=== PATIENT | female | born 1940 | race Caucasian/White ===

== ENCOUNTER 2016-11-28 20:06 | Inpatient (IN) | payer MEDICARE, OTHER ==
[~2016-11-28] VITALS: Ht 152.4 cm; Wt 67.1 kg
[~2016-11-28 20:06] MED LIST: SITA1TAB3
--- NOTE | 2016-11-28 21:09 | ERD ---
ER Documentation Chief Complaint Date/Time DATE: 11/28/16 TIME: 21:05 Chief Complaint left facial swelling due to tooth infection x 5 days (KARIN ANN NP) HPI This is a 76 year old female, with past medical history of diabetes mellitus type 2, presenting to ER with left sided facial swelling and pain. She states she was seen by her dentist 4 days ago and was told she has a tooth infection. Patient was prescribed Omnicef and has been taking it as directed. Patient now has moderate swelling and pain to left side of her face. Patient also states the last time her labs were checked her blood glucose was 420. Patient takes metformin for her diabetes. Patient does not check her blood glucose regularly. No fevers or chills. No nausea or vomiting. No neck pain or neck stiffness. (KARIN ANN NP) ROS All systems reviewed and are negative except as per history of present illness. (KARIN ANN NP) Medications Home Meds Reported Medications Sitagliptin Phos-Metformin Hcl (Janumet) 1 Tab Tablet 02/11/10 Allergies Allergies: Coded Allergies: No Known Allergy (Verified Allergy, Unknown, 06/05/08) PMhx/Soc Medical and Surgical Hx: pt denies Surgical Hx History of Surgery: No Anesthesia Reaction: No Hx Neurological Disorder: No Hx Respiratory Disorders: No Hx Cardiac Disorders: No Hx Psychiatric Problems: No Hx Miscellaneous Medical Probl: Yes (NIDDM) Hx Alcohol Use: No Hx Substance Use: No Hx Tobacco Use: No Smoking Status: Never smoker (KARIN ANN NP) Physical Exam Vitals Vital Signs Date Time Temp Pulse Resp B/P Pulse Ox O2 Delivery O2 Flow Rate FiO2 11/28/16 20:08 99.5 114 20 116/63 97 (ESTELA SRINIVASAN DO) Physical Exam Const: No acute distress, alert Head: Atraumatic , left sided facial swelling and erythema. Eyes: Normal Conjunctiva ENT: Normal External Ears, Nose and Mouth. Neck: Full range of motion..~ No meningismus. Resp: Clear to auscultation bilaterally Cardio: Regular rate and rhythm, no murmurs Abd: Soft, non tender, non distended. Normal bowel sounds Skin: No petechiae or rashes Back: No midline or flank tenderness Ext: No cyanosis, or edema Neur: Awake and alert Psych: Normal Mood and Affect (KARIN ANN. KNOWLEDGE ARCHITECT) Result Diagram: 11/28/16210411/28/162107 Results 24 hrs Laboratory Tests Test 11/28/16 21:05 11/28/16 21:08 11/28/16 21:50 11/28/16 22:23 White Blood Count 20.810^3/ul Red Blood Count 3.7910^6/ul Hemoglobin 10.8g/dl Hematocrit 32.3% Mean Corpuscular Volume 85.2fl Mean Corpuscular Hemoglobin 28.5pg Mean Corpuscular Hemoglobin Concent 33.4g/dl Red Cell Distribution Width 12.8% Platelet Count 77652^3/UL Mean Platelet Volume 11.3fl Neutrophils % 81.8% Lymphocytes % 8.8% Monocytes % 8.4% Eosinophils % 0.3% Basophils % 0.2% Nucleated Red Blood Cells % 0.0/100WBC Neutrophils # 17.010^3/ul Lymphocytes # 1.810^3/ul Monocytes # 1.710^3/ul Eosinophils # 0.110^3/ul Basophils # 0.110^3/ul Nucleated Red Blood Cells # 0.010^3/ul Prothrombin Time 13.6Sec Prothrombin Time Ratio 1.1 INR International Normalized Ratio 1.04 Activated Partial Thromboplast Time 31.5Sec Sodium Level 139mmol/L Potassium Level 3.9mmol/L Chloride Level 103mmol/L Carbon Dioxide Level 25mmol/L Anion Gap 15 Blood Urea Nitrogen 28mg/dl Creatinine 1.00mg/dl Glucose Level 293mg/dl Lactic Acid Level 1.2mmol/L Calcium Level 9.1mg/dl Total Bilirubin 0.2mg/dl Direct Bilirubin 0.00mg/dl Indirect Bilirubin 0.2mg/dl Aspartate Amino Transf (AST/SGOT) 14IU/L Alanine Aminotransferase (ALT/SGPT) 25IU/L Alkaline Phosphatase 176IU/L Total Protein 7.4g/dl Albumin 3.6g/dl Globulin 3.80g/dl Albumin/Globulin Ratio 0.94 Troponin I < 0.012ng/ml Urine Color YELLOW Urine Clarity SLIGHTLY CLOUDY Urine pH 5.0 Urine Specific [place] 1.022 Urine Ketones 1+mg/dL Urine Nitrite NEGATIVEmg/dL Urine Bilirubin NEGATIVEmg/dL Urine Urobilinogen 1+mg/dL Urine Leukocyte Esterase 2+Karan/ul Urine Microscopic RBC 1/HPF Urine Microscopic WBC 14/HPF Urine Squamous Epithelial Cells FEW/HPF Urine Transitional Epithelial Cells FEW/HPF Urine Hyaline Casts FEW/HPF Urine Hemoglobin NEGATIVEmg/dL Urine Glucose 3+mg/dL Urine Total Protein 1+mg/dl Current Medications Medications (Trade) Dose Ordered Sig/Dayron Route PRN Reason Start Time Stop Time Status Last Admin Dose Admin Sodium Chloride 2140 ml 2,140 ml BOLUS OVER 2 HOURS STAT IV* 11/28/16 21:35 11/28/16 21:37 DC 11/28/16 21:44 Piperacillin Sod/ Tazobactam Sod (Zosyn 3.375gm/ 100 ml (Pmx)) 100 ml @ 200 mls/hr ONCE ONCE IVPB 11/28/16 22:30 11/28/16 22:59 DC 11/28/16 22:24 (ESTELA SRINIVASAN DO) Procedures/MDM DM: This is a 76-year-old female presenting to the emergency department for left -sided facial swelling, redness and pain starting yesterday. Patient went to her dentist 4 days ago and was prescribed Omnicef for possible tooth infection per patient. Patient is afebrile upon arrival to ED and heart rate [address] Srinivasan regarding this patient and we agree that lab work should be done to rule out sepsis. Labs show elevated WBC 20 with neutrophilia. CMP shows 293, AST 14, ALT 25, alkaline phosphatase 176. Troponin less than 0.012. Lactic acid 1.2. Blood cultures drawn. UA shows 2+ leukocyte esterase, and 14 WBCs. Discussed findings with Dr. Srinivasan. We agree that patient should be admitted for further evaluation. Patient started on Zosyn IV. (KARIN ANN NP) UTI with sepsis and elderly female. Possibly also contributing is dental infection. Patient was initially given Zosyn. She was given 30 cc/kg of IV fluid as well. Significant leukocytosis with a white count of 20. Vital signs were stabilized in the emergency room. Urine cultures obtained and will be followed. Patient will need to eventually have to see a dentist for definitive treatment of her dental infection but sepsis can be treated here. Diabetic hyperglycemia likely elevated secondary to infection. She was given saline for this and sugar will be rechecked in insulin may be started. X-ray interpretation: I see no acute process, no infiltrate, no pulmonary edema , no pneumothorax, no fractures Vertigo care time greater than 35 minutes: This includes treatment of sepsis with unstable vital signs, careful fluid administration, antibiotic administration, all visits patient's bedside to reassess status, discussion with patient and admitting doctor, review of chart. This does not include billable procedures. (ESTELA SRINIVASAN DO) Departure Diagnosis: Primary Impression: Sepsis secondary to UTI Additional Impressions: Dental infection Hyperglycemia due to type 2 diabetes mellitus Condition: KARIN Tatum NP Nov 28, 2016 21:09 ESTELA SRINIVASAN DO Nov 29, 2016 00:10
[2016-11-28 21:18] LABS: ABNORMAL IP MESSAGE 1; BASOPHIL # 0.1 10^3/ul (0.0-0.1); BASOPHILS % 0.2 % (0.0-2.0); EOSINOPHILS # 0.1 10^3/ul (0.0-0.5); EOSINOPHILS % 0.3 % (0.0-7.0); HEMATOCRIT 32.3 % (37.0-47.0); HEMOGLOBIN 10.8 g/dl (12.0-16.0); LYMPHOCYTES # 1.8 10^3/ul (0.8-2.9); LYMPHOCYTES % 8.8 % (15.0-51.0); MEAN CORPUSCULAR HEMOGLOBIN 28.5 pg (29.0-33.0); MEAN CORPUSCULAR HGB CONC 33.4 g/dl (32.0-37.0); MEAN CORPUSCULAR VOLUME 85.2 fl (82.0-101.0); MEAN PLATELET VOLUME 11.3 fl (7.4-10.4); MONOCYTE # 1.7 10^3/ul (0.3-0.9); MONOCYTES % 8.4 % (0.0-11.0); NEUTROPHILS % 81.8 % (39.0-77.0); PLATELET COUNT 291 10^3/UL (140-415); RED BLOOD COUNT 3.79 10^6/ul (4.20-5.40); RED CELL DISTRIBUTION WIDTH 12.8 % (11.5-14.5); WHITE BLOOD COUNT 20.8 10^3/ul (4.8-10.8)
[2016-11-28 21:20] LABS: POSITIVE DIFF @See below
[2016-11-28] MEDS ORDERED: SODIUM CHLORIDE 0.9% 1L BAG IV* STA (21:35)
[2016-11-28 22:08] LABS: INR 1.04; PROTIME 13.6 Sec (12.2-14.2); PT RATIO 1.1
[2016-11-28 22:09] LABS: PARTIAL THROMBOPLASTIN TIME 31.5 Sec (25.0-35.0)
[2016-11-28 22:16] LABS: ALBUMIN 3.6 g/dl (3.3-4.9); ALBUMIN/GLOBULIN RATIO 0.94; BILIRUBIN,INDIRECT 0.2 mg/dl (0-1.1); BILIRUBIN,TOTAL 0.2 mg/dl (0.2-1.3); CALCIUM 9.1 mg/dl (8.4-10.2); POTASSIUM 3.9 mmol/L (3.5-5.1); TOTAL PROTEIN 7.4 g/dl (6.1-8.1)
[2016-11-28] MEDS ORDERED: PIPER-TAZO 3.375 GM IV (PMX) 100 ML IVPB ONE (22:30)
[2016-11-28 23:18] LABS: ADD UMIC YES; UR ASCORBIC ACID 40 mg/dL (NEGATIVE); UR BILIRUBIN (Dip) NEGATIVE (NEGATIVE); UR BLOOD (Dip) NEGATIVE (NEGATIVE); UR CLARITY SLIGHTLY CLOUDY (CLEAR); UR COLOR YELLOW (YELLOW); UR GLUCOSE (Dip) 3+ mg/dL (NEGATIVE); UR KETONES (Dip) 1+ mg/dL (NEGATIVE); UR LEUKOCYTE ESTERASE (Dip) 2+ Leu/ul (NEGATIVE); UR NITRITE (Dip) NEGATIVE (NEGATIVE); UR RBC 1 /HPF (0-5); UR SPECIFIC GRAVITY (Dip) 1.022 (1.003-1.030); UR SQUAMOUS EPITHELIAL CELL FEW /HPF (FEW); UR TOTAL PROTEIN (Dip) 1+ mg/dl (NEGATIVE); UR TRANSITIONAL EPI CELL FEW /HPF (NONE SEEN); UR UROBILINOGEN (Dip) 1+ mg/dL (NEGATIVE)
--- NOTE | 2016-11-28 23:45 | RADRPT ---
PROCEDURE: XR Chest. CLINICAL INDICATION: Possible sepsis. TECHNIQUE: Single frontal view of the chest. COMPARISON: None. FINDINGS: Cardiomegaly. Mild atelectasis at the left lung base. No signs of pleural fluid or pneumothorax are seen. Dextroscoliosis in the upper thoracic spine. Otherwise, the osseous structures and soft tissue s are unremarkable. IMPRESSION: No evidence for active cardiopulmonary disease. RPTAT: UU Physician Leidy Date Time Electronically viewed and signed by Dariana Kearns Physician on 11/28/2016 23:44 RS/
[2016-11-29] MEDS ORDERED: morphine 4 MG/ML VIAL IV STA (01:04)
[2016-11-29] MEDS ORDERED: SOD CHLORIDE 0.9% 1,000 ML IV SCH (01:13)
--- NOTE | 2016-11-29 01:16 | EN ---
Date/Time of Note Date/Time of Note DATE: 11/29/16 TIME: 01:14 ER Progress Note I was notified by an fast track nurse that there was a patient in the back who is supposed to have been admitted. This patient does have facial cellulitis. I reevaluated this patient in this patient did have swelling of the face with no compromise of the airway. Her lab work does show leukocytosis, she was febrile. She does meet sepsis criteria. The patient was given greater than 30 cc/kg of IV normal saline. I did start the patient on vancomycin, the patient received Zosyn. This patient will be placed in for admission at this time for facial cellulitis with sepsis. The patient will be admitted to the [facility] floor under the care of her panel physician Dr. méndez Critical Care: Excluding all billable procedures Time: 44 minutes Treatments/Evaluations: Close monitoring and treatment of unstable vital signs, cardiorespiratory, and neurologic status, while maintaining tight balance of fluid, respiratory, and cardiac interventions. OTONIEL SYKES DO Nov 29, 2016 01:16
[2016-11-29] MEDS ORDERED: IODIXANOL LOCM 100 ML BTL ONE (01:20)
[2016-11-29] MEDS ORDERED: SOD CHLORIDE 0.9% 100 ML ONE (01:20)
[2016-11-29] MEDS ORDERED: DEXAMETHASONE 10 MG/ML 1 ML INJ IV ONE (01:30)
[2016-11-29] MEDS ORDERED: ONDANSETRON 4 MG INJ IV PRN (01:30)
[2016-11-29] MEDS ORDERED: ACETAMINOPHEN 325 MG TAB PO PRN (01:30)
[2016-11-29] MEDS ORDERED: VANCOMYCIN 1 GM (PMX) 250 ML IVPB SCH (01:30)
[2016-11-29 03:18] VITALS: BP 100/56; PULSE 98; RESP 18
[2016-11-29 03:19] VITALS: Ht 152.4 cm; Wt 67.1 kg
--- NOTE | 2016-11-29 03:41 | RADRPT ---
PROCEDURE: CT maxillofacial with contrast. CLINICAL INDICATION: Left facial swelling. TECHNIQUE: CT of the maxillofacial was performed on a multi-detector high-resolution CT scanner. Contiguous axial images were obtained after the administration of 90 cc Visipaque 320 intravenous co ntrast. Coronal and sagittal reformatted images were obtained. Images were reviewed on a PACS works tation. One or more of the following dose reduction techniques were used: - Automated exposure control. - Adjustment of the mA and/or kV according to patient size. - Use of iterative reconstruction technique. Exam CTD/vol = 53.57 mGy. Total exam DLP = 900.78 mGy-cm. COMPARISON: None. FINDINGS: There is enlargement of the left masseter muscle with poorly defined areas of low attenuation. There is left facial soft tissue swelling with subcutaneous stranding. The left parotid gland is enlarged and mildly edematous. There are small calcifications within bilateral palatine tonsils compatible w ith microlithiasis. The nasopharynx, oropharynx, hypopharynx and larynx are otherwise within normal limits. The tongue and tongue base are within normal limits. The vallecula and piriform sinuses ar e within normal limits. The right parotid and bilateral submandibular glands are within normal limi ts. There are small jugulodigastric lymph nodes bilaterally with the largest on the left measuring 1.1 x 0.8 cm. Visualized paranasal sinuses and mastoid air cells are clear. There are atherosclero tic calcifications within bilateral carotid bifurcations. There are moderate degenerate changes of t he left temporomandibular joint with joint space narrowing and osteophytes. IMPRESSION: Enlarged left masseter muscle with poorly defined areas of low attenuation suggestive of underlying hematoma or abscess. There is overlying left facial soft tissue swelling with subcutaneous stranding . The left parotid gland is also mildly edematous. Vascular calcifications reflective of atherosclerosis. .Soyn Pfeiffer MD, MD Date Time Electronically viewed and signed by .Sony Pfeiffer MD, MD on 11/29/2016 03:41 .T/
[2016-11-29] MEDS ORDERED: DEXTROSE 50% 50 ML SYRINGE IV PRN ×2 (04:30)
[2016-11-29] MEDS ORDERED: GLUCOSE GEL 15 GRAM TUBE BUCCAL PRN (04:30)
[2016-11-29] MEDS ORDERED: GLUCAGON 1 MG INJ IM PRN (04:30)
[2016-11-29] MEDS ORDERED: GLUCOSE GEL 15 GRAM TUBE PO PRN ×2 (04:30)
[2016-11-29] MEDS: PIPER-TAZO 2.25 GM (PMX) 50 ML IVPB SCH ×3 (06:00→17:30)
[2016-11-29] MEDS ORDERED: VANCOMYCIN IV PER PHARMACY XX SCH (06:00)
[2016-11-29] MEDS ORDERED: METHYLPREDNISOLONE 125 MG INJ IV ONE (06:00)
[2016-11-29] MEDS ORDERED: DEXTROSE 5%-0.45% NACL 1,000 ML IV SCH (06:00)
[2016-11-29] MEDS: FUROSEMIDE 20 MG INJ IV SCH ×2 (06:21→08:40)
--- NOTE | 2016-11-29 06:55 | HP ---
Date/Time of Note Date/Time of Note DATE: 11/29/16 TIME: 06:45 Assessment/Plan VTE Prophylaxis VTE Prophylaxis Intervention: SCD's Lines/Catheters IV Catheter Type (from Nrs): Saline Lock Assessment/Plan Assessment/Plan 1. Sepsis, as evidenced by leukocytosis and tachycardia, secondary to facial cellulitis -CT of the face showed enlarged left masseter muscle, with possible hematoma versus abscess formation as well as mildly edematous left parotid gland. -IV antibiotic -ID consult -Patient was no airway compromise -Consider ENT consult -She will receive Lasix to help with edema. Even though there is infectious process going on, will give a dose of steroid to help with probable inflammatory process 2. Type 2 diabetes, with hyperglycemia -Check A1c - Insulin while in-house 3. Normocytic anemia, likely of chronic disease: No reported GI bleed -Monitor H&H and transfuse as needed -Upon discharge, patient will be advised to have outpatient evaluation by her PMD for FOBT and iron profile HPI/ROS Admit Date/Time Admit Date/Time Nov 29, 2016 at 01:14 Hx of Present Illness This is a 76-year-old female with a history of type 2 diabetes and osteoarthritis who presented to the emergency department complaining of left facial swelling and pain. She also complains of pain when chewing her food and swallowing. Earlier this week, she was told by her dentist that she has a tooth infection and has been prescribed Omnicef which she has been taking. When she presented to the ER, CT of her face showed Enlarged left masseter muscle with poorly defined areas of low attenuation suggestive of underlying hematoma or abscess. There is overlying left facial soft tissue swelling with subcutaneous stranding. The left parotid gland is also mildly edematous. Labs shows a WBC of 21,000, hemoglobin 10.8 and glucose of 293. She had a temp of 99.5, was tachycardic with a heart rate of 114 otherwise BP was within normal limits. PMH/Family/Social Social History Smoking Status: Never smoker Exam/Review of Systems Vital Signs Vitals Vital Signs Date Time Temp Pulse Resp B/P Pulse Ox O2 Delivery O2 Flow Rate FiO2 11/29/16 03:18 98.2 98 18 100/56 99 Room Air Exam Constitutional: alert, oriented Head: atraumatic, normocephalic Eyes: PERRL ENMT: other (Left-sided facial swelling, erythema and tenderness) Respiratory: clear to auscultation, normal air movement Cardiovascular: other (Tachycardic with regular rhythm) Gastrointestinal: soft Extremities: normal pulses Labs Result Diagram: 11/28/16210411/28/162107 Medications Medications Current Medications Sodium Chloride (NS) 1,000 ml @ 80 mls/hr [id number] IV ; Start 11/29/16 at 01:13 ; Stop 11/29/16 at 13:42 Diagnostic Test (Pha) (Accu-Chek) 1 ea 02 XX ; Start 11/30/16 at 02:00 Diagnostic Test (Pha) (Accu-Chek) 1 ea 02 XX ; Start 11/30/16 at 02:00 Miscellaneous Information 1 ea NOTE XX ; Start 11/29/16 at 04:30 Glucose (Glutose) 15 gm Q15M PRN PO DECREASED GLUCOSE; Start 11/29/16 at 04:30 Glucose (Glutose) 22.5 gm Q15M PRN PO DECREASED GLUCOSE; Start 11/29/16 at 04: 30 Dextrose (D50w Syringe) 25 ml Q15M PRN IV DECREASED GLUCOSE; Start 11/29/16 at 04:30 Dextrose (D50w Syringe) 50 ml Q15M PRN IV DECREASED GLUCOSE; Start 11/29/16 at 04:30 Glucagon (Glucagen) 1 mg Q15M PRN IM DECREASED GLUCOSE; Start 11/29/16 at 04: 30 Glucose 15 gm 15 gm Q15M PRN BUCCAL DECREASED GLUCOSE; Start 11/29/16 at 04:30 Piperacillin Sod/ Tazobactam Sod (Zosyn 2.25gm/ 50ml (Pmx)) 50 ml @ 200 mls/hr Q6 IVPB ; Start 11/29/16 at 06:00 Furosemide (Lasix) 20 mg DAILY IV Last administered on 11/29/16 06:21; Admin Dose 20 MG; Start 11/29/16 at 06:00; Stop 12/01/16 at 09:00 Insulin Glargine 15 unit 15 unit DAILY@08 SC ; Start 11/29/16 at 08:00 Dextrose/Sodium Chloride 1,000 ml @ 40 mls/hr Q24H IV Last administered on 06:21; Admin Dose 40 MLS/HR; Start 11/29/16 at 06:00 Vancomycin HCl/ Sodium Chloride (Vancocin/NS) 150 ml @ 75 mls/hr Q24H IVPB ; Start 11/30/16 at 02:00 THANH PASTOR MD Nov 29, 2016 06:54
[2016-11-29] MEDS ORDERED: INSULIN ASPART [NOVOLOG] 3 ML PEN SC SCH (08:15)
[2016-11-29 08:23] VITALS: BP 119/53; RESP 18
--- NOTE | 2016-11-29 08:46 | QN ---
Documentation Comment Examined patient at bedside. Left facial edema remains slightly improved with patient having improved pain status. Impression: Sepsis secondary to left facial cellulitis with underlying recent tooth abscess. Positive urinalysis, suggestive of urinary tract infection. Type 2 diabetes. Chronic anemia. Plan: We are going to proceed with soft tissue ultrasound to rule out abscess. Currently patient is on Zosyn and vancomycin which we are going to keep. We are also going to request ID consultation on this patient. Patient will be treated with steroids, will keep n.p.o. except medications. We will also change IV fluids to normal saline. We will follow-up with ultrasound soft tissue and will proceed with I&D if indicated. Will also obtain 2 D echocardiogram as patient with history of recent tooth infection. We will also consider ENT consultation if indicated. We will also escalate insulin to moderate scale while patient is receiving steroids. Follow-up with the urine cultures. Patient was seen in collaboration with . JASON AMADOR NP Nov 29, 2016 08:46
[2016-11-29] MEDS: INSULIN GLARGINE [LANtus] 3 ML PEN SC SCH (08:47)
[2016-11-29] MEDS ORDERED: INSULIN ASPART [NOVOLOG] 3 ML PEN SC ONE (09:00)
[2016-11-29] MEDS: METHYLPREDNISOLONE 40 MG INJ IV SCH ×2 (09:29→20:52)
[2016-11-29] MEDS: SOD CHLORIDE 0.9% 1,000 ML IV SCH ×2 (11:28→23:00)
[2016-11-29] MEDS: INSULIN ASPART [NOVOLOG] 3 ML PEN SC SCH ×3 (12:28→21:09)
--- NOTE | 2016-11-29 12:34 | CONS ---
Date/Time of Note Date/Time of Note DATE: 11/29/16 TIME: 12:07 Assessment/Plan Assessment/Plan Chief Complaint/Hosp Course ID PROGRESS NOTE CURRENT ABX: TOTAL ABX DAY # => Vanco IV + Zosyn 24H INTERVAL SUMMARY * s/p Dental visit last week was told Dental Infection -> progress left side facial swelling, erythema pain, (+)Fevers, (+)DM hyperglycemia * 11/29/16 CT: IMPRESSION: * Enlarged left masseter muscle with poorly defined areas of low attenuation suggestive of underlying hematoma or abscess. * There is overlying left facial soft tissue swelling with subcutaneous stranding. * The left parotid gland is also mildly edematous * Vascular calcifications reflective of atherosclerosis. Physical Exam Const: No acute distress, alert Head: Atraumatic , left sided facial swelling and erythema. Eyes: Normal Conjunctiva ENT: Normal External Ears, Nose and Mouth. Neck: Full range of motion..~ No meningismus. Resp: Clear to auscultation bilaterally Cardio: Regular rate and rhythm, no murmurs Abd: Soft, non tender, non distended. Normal bowel sounds Skin: No petechiae or rashes Back: No midline or flank tenderness Ext: No cyanosis, or edema Neur: Awake and alert Psych: Normal Mood and Affect ID ASSESSMENT 76 yo F admit with: 1. Sepsis criteria w/fevers 99.5, WBC 20 with neutrophilia, tachycardia (HR 114), (+)DM hyperglycemia 2/2 #2 2. Left facial cellulitis w/underlying dental infection -> CT raises concern hematoma vs abscess, with parotiditis. * 11/29/16CT IMPRESSION: Enlarged left masseter muscle with poorly defined areas of low attenuation suggestive of underlying hematoma or abscess. There is overlying left facial soft tissue swelling with subcutaneous stranding. The left parotid gland is also mildly edematous. Vascular calcifications reflective of atherosclerosis. 3. UTI per UA 2/2+ Leuk Esterase, WBCs 14 w/epithelial cells (possibly reflecting contaminated sample). 4. DMT2 on Janumet INVASIVES: PIV ABX ALLERGIES: KNDA CURRENT ABX: TOTAL ABX DAY # => Vanco IV + Zosyn ID RECOMMENDATIONS 1. Continue IV ABX 2. Patient was started on IV steroids for concern edema. 3. Will monitor progress overnight, may need ENT referral if no significant improvement. . Problems: Consultation Date/Type/Reason Admit Date/Time Nov 29, 2016 at 08:40 Initial Consult Date Exam/Review of Systems Vital Signs Vitals Vital Signs Date Time Temp Pulse Resp B/P Pulse Ox O2 Delivery O2 Flow Rate FiO2 11/29/16 08:23 98.7 98 18 119/53 95 11/29/16 03:18 Room Air Results Result Diagram: 11/28/16210411/28/162107 Results 24 hrs Laboratory Tests Test 11/28/16 21:05 11/28/16 21:08 11/28/16 21:50 11/28/16 22:23 White Blood Count 20.8 H Red Blood Count 3.79 L Hemoglobin 10.8 L Hematocrit 32.3 L Mean Corpuscular Volume 85.2 Mean Corpuscular Hemoglobin 28.5 L Mean Corpuscular Hemoglobin Concent 33.4 Red Cell Distribution Width 12.8 Platelet Count 291 Mean Platelet Volume 11.3 H Neutrophils % 81.8 H Lymphocytes % 8.8 L Monocytes % 8.4 Eosinophils % 0.3 Basophils % 0.2 Nucleated Red Blood Cells % 0.0 Neutrophils # 17.0 H Lymphocytes # 1.8 Monocytes # 1.7 H Eosinophils # 0.1 Basophils # 0.1 Nucleated Red Blood Cells # 0.0 Prothrombin Time 13.6 Prothrombin Time Ratio 1.1 INR International Normalized Ratio 1.04 Activated Partial Thromboplast Time 31.5 Sodium Level 139 Potassium Level 3.9 Chloride Level 103 Carbon Dioxide Level 25 Anion Gap 15 Blood Urea Nitrogen 28 H Creatinine 1.00 Glucose Level 293 H Lactic Acid Level 1.2 Calcium Level 9.1 Total Bilirubin 0.2 Direct Bilirubin 0.00 Indirect Bilirubin 0.2 Aspartate Amino Transf (AST/SGOT) 14 L Alanine Aminotransferase (ALT/SGPT) 25 Alkaline Phosphatase 176 H Total Protein 7.4 Albumin 3.6 Globulin 3.80 H Albumin/Globulin Ratio 0.94 Troponin I < 0.012 Urine Color YELLOW Urine Clarity SLIGHTLY CLOUDY A Urine pH 5.0 Urine Specific [place] 1.022 Urine Ketones 1+ H Urine Nitrite NEGATIVE Urine Bilirubin NEGATIVE Urine Urobilinogen 1+ H Urine Leukocyte Esterase 2+ H Urine Microscopic RBC 1 Urine Microscopic WBC 14 H Urine Squamous Epithelial Cells FEW Urine Transitional Epithelial Cells FEW A Urine Hyaline Casts FEW A Urine Hemoglobin NEGATIVE Urine Glucose 3+ H Urine Total Protein 1+ H Test 11/28/16 23:15 11/29/16 02:26 11/29/16 04:49 11/29/16 08:34 Lactic Acid Level 1.2 1.0 1.0 Bedside Glucose 415 *H Medications Medications Current Medications Diagnostic Test (Pha) (Accu-Chek) 1 ea 02 XX ; Start 11/30/16 at 02:00 Diagnostic Test (Pha) (Accu-Chek) 1 ea 02 XX ; Start 11/30/16 at 02:00 Miscellaneous Information 1 ea NOTE XX ; Start 11/29/16 at 04:30 Glucose (Glutose) 15 gm Q15M PRN PO DECREASED GLUCOSE; Start 11/29/16 at 04:30 Glucose (Glutose) 22.5 gm Q15M PRN PO DECREASED GLUCOSE; Start 11/29/16 at 04: 30 Dextrose (D50w Syringe) 25 ml Q15M PRN IV DECREASED GLUCOSE; Start 11/29/16 at 04:30 Dextrose (D50w Syringe) 50 ml Q15M PRN IV DECREASED GLUCOSE; Start 11/29/16 at 04:30 Glucagon (Glucagen) 1 mg Q15M PRN IM DECREASED GLUCOSE; Start 11/29/16 at 04: 30 Glucose 15 gm 15 gm Q15M PRN BUCCAL DECREASED GLUCOSE; Start 11/29/16 at 04:30 Piperacillin Sod/ Tazobactam Sod (Zosyn 2.25gm/ 50ml (Pmx)) 50 ml @ 200 mls/hr Q6 IVPB Last administered on 11/29/16 06:00; Admin Dose 200 MLS/HR; Start at 06:00 Furosemide (Lasix) 20 mg DAILY IV Last administered on 11/29/16 08:40; Admin Dose 20 MG; Start 11/29/16 at 06:00; Stop 12/01/16 at 09:00 Insulin Glargine 15 unit 15 unit DAILY@08 SC Last administered on 11/29/16 08 :47; Admin Dose 15 UNIT; Start 11/29/16 at 08:00 Vancomycin HCl/ Sodium Chloride (Vancocin/NS) 150 ml @ 75 mls/hr Q24H IVPB ; Start 11/30/16 at 02:00 Methylprednisolone Sodium Succinate 40 mg 40 mg Q12 IV Last administered on 09:29; Admin Dose 40 MG; Start 11/29/16 at 09:00 Sodium Chloride (NS) 1,000 ml @ 80 mls/hr [id number] IV Last administered on t 11:28; Admin Dose 80 MLS/HR; Start 11/29/16 at 10:30 MANUELA JOEL NP Nov 29, 2016 12:17
--- NOTE | 2016-11-29 13:14 | RADRPT ---
PROCEDURE: US soft tissue. CLINICAL INDICATION: Rule out left facial abscess TECHNIQUE: Multiple sonographic images of the left face was obtained. The images were reviewed on a PACS workstation. COMPARISON: None FINDINGS: Targeted ultrasound of the left face was performed. Left facial swelling is noted. No focal fluid co llection to suggest hematoma or abscess was noted. IMPRESSION: Left facial swelling without sonographic evidence of hematoma or abscess. RPTAT: QQ Physician Declan Date Time Electronically viewed and signed by Physician Declan on 11/29/2016 13:14 /
[2016-11-29 15:10] VITALS: BP 126/61; RESP 20
[2016-11-29 19:24] VITALS: BP 100/57; RESP 20
[2016-11-30] MEDS: SOD CHLORIDE 0.9% 1,000 ML IV SCH ×3 (00:21→20:41)
[2016-11-30] MEDS: PIPER-TAZO 2.25 GM (PMX) 50 ML IVPB SCH ×5 (00:21→23:29)
[2016-11-30] MEDS ORDERED: morphine 2 MG INJ IV PRN (00:45)
[2016-11-30 01:28] VITALS: BP 111/53; RESP 20
--- NOTE | 2016-11-30 01:44 | CONS ---
DATE OF ADMISSION: 11/29/2016 DATE OF CONSULTATION: 11/29/2016 INFECTIOUS DISEASE CONSULTATION REASON FOR CONSULTATION: Antibiotic management. HISTORY OF PRESENT ILLNESS: Pam Rajan is a 76-year-old female who comes in with sepsi s and facial cellulitis. Past problems include: 1. Adult-onset diabetes mellitus. 2. Osteoarthritis. She presented to the emergency room with left facial swelling and pain. She complains of pain with chewing her food and swallowing. She was told by her dentist earlier this week that she had a tooth infection and was prescribed Omnicef. A CT scan of her face showed a large left masseter muscle wi th poorly defined areas of low attenuation, suggestive of underlying hematoma or abscess. There is overlying left soft tissue swelling with subcutaneous stranding. Left parotid gland is also mildly edematous. On admission, her white count was 20.8, H and H of 10.8 and 32.3, platelet count 291,000 . BUN and creatinine 28/1.0. Random glucose was 293. PAST MEDICAL HISTORY: Operations as outlined. FAMILY HISTORY: Noncontributory. SOCIAL HISTORY: She does not smoke, drink or abuse drugs. ALLERGIES: NONE TO PENICILLIN, SULFA OR FOODS. MEDICATIONS: Per chart. REVIEW OF SYSTEMS: As per HPI. PHYSICAL EXAMINATION: GENERAL: The patient is an elderly appearing female who is alert, responsive, in no acute distress. VITAL SIGNS: Stable. She is afebrile. SKIN: Without generalized rash. HEENT: She has left-sided facial swelling with redness and tenderness. Otherwise, ENT within vernon l limits. NECK: Supple. LYMPH NODES: None palpable. CHEST: Decreased breath sounds at the bases. HEART: Tachycardic with regular rhythm. ABDOMEN: Soft, nontender, without organosplenomegaly or masses. EXTREMITIES: Without cyanosis, clubbing or edema. RECTAL AND GENITAL: Deferred. NEUROLOGIC: No focal neurological abnormalities. IMPRESSION: Patient was begun on vancomycin, was given some methylprednisolone, also is on Zosyn. We will await cultures. I will dictate my findings to the hospitalist. Dictated By: LÓPEZ DAVIS MD, JD/NTS Conf#: [id number] DID#: [id number] CC: THANH PASTOR MD;*EndCC*
[2016-11-30] MEDS: ACCU-CHEK XX SCH ×2 (02:12→02:13)
[2016-11-30] MEDS: VANCOMYCIN 750 MG in SOD CHLORIDE 0.9% 150 ML IVPB SCH (02:42)
[2016-11-30 05:55] LABS: BASOPHILS % 0.1 % (0.0-2.0); HEMOGLOBIN 10.1 g/dl (12.0-16.0); LYMPHOCYTES # 1.7 10^3/ul (0.8-2.9); LYMPHOCYTES % 8.4 % (15.0-51.0); MEAN CORPUSCULAR HEMOGLOBIN 27.9 pg (29.0-33.0); MEAN CORPUSCULAR HGB CONC 32.6 g/dl (32.0-37.0); MEAN CORPUSCULAR VOLUME 85.6 fl (82.0-101.0); MEAN PLATELET VOLUME 11.9 fl (7.4-10.4); MONOCYTE # 0.5 10^3/ul (0.3-0.9); MONOCYTES % 2.7 % (0.0-11.0); NEUTROPHIL # 17.3 10^3/ul (1.6-7.5); NEUTROPHILS % 88.2 % (39.0-77.0); PLATELET COUNT 333 10^3/UL (140-415); RED BLOOD COUNT 3.62 10^6/ul (4.20-5.40); RED CELL DISTRIBUTION WIDTH 12.7 % (11.5-14.5); WHITE BLOOD COUNT 19.7 10^3/ul (4.8-10.8)
[2016-11-30 06:36] LABS: CALCIUM 8.6 mg/dl (8.4-10.2); CREATININE 1.03 mg/dl (0.44-1.00); POTASSIUM 3.3 mmol/L (3.5-5.1)
[2016-11-30 07:32] VITALS: BP 124/58; RESP 18
[2016-11-30] MEDS: FUROSEMIDE 20 MG INJ IV SCH (08:03)
[2016-11-30] MEDS: METHYLPREDNISOLONE 40 MG INJ IV SCH (08:03)
[2016-11-30] MEDS: INSULIN ASPART [NOVOLOG] 3 ML PEN SC SCH ×6 (08:20→20:48)
[2016-11-30] MEDS: INSULIN GLARGINE [LANtus] 3 ML PEN SC SCH (08:20)
[2016-11-30] MEDS ORDERED: POTASSIUM CHLORIDE (SR) 20 MEQ TAB PO STA (09:57)
--- NOTE | 2016-11-30 10:18 | PN ---
Date/Time of Note Date/Time of Note DATE: 11/30/16 TIME: 09:59 Assessment/Plan VTE Prophylaxis VTE Prophylaxis Intervention: ambulation Lines/Catheters IV Catheter Type (from Nrs): Peripheral IV Assessment/Plan Chief Complaint/Hosp Course 76-year-old female presenting with s left-sided facial swelling, pain, and fevers who apparently had a dental visit last week and was told that she had a dental infection. 1.Left facial cellulitis with underlying recent tooth abscess-failed outpatient therapy. Initial CT with suggestion of hematoma/abscess. A follow-up soft tissue ultrasound on 11/29/2016 without any evidence of hematoma or abscess. Clinically improving. -ID evaluation appreciated. Continue steroids (will change to Decadron IV), broad-spectrum antibiotics and follow-up cultures and 2D echocardiogram. -We will consider ENT in-house evaluation if no improvement, otherwise will defer to outpatient ENT evaluation -Foremost priority is to have patient follow-up with her dentist after discharge for infected tooth extraction (Left lower molar) after she received appropriate antibiotics as soon as possible 2. Sepsis,present on admission secondary to #1.Clinically improving. Ofnote, patient now on steroids,therefore WBC counts does not actually reflect the severity of sepsis. -Treatment as above.F/u final cultures. 3.Positive urinalysis, suggestive of urinary tract infection. -Unable to add urine culture to the admission specimen. Will attempt to collect now. Please note that patient received abxx3 days and this can yield a negative culture at this time. -Empirically treat with abx for UTI. 4.Poorly controlled Type 2 diabetes. Now with uncontrolled hyperglycemia secondary to steroids and concurrent sepsis. -Continue Accu-Cheks/moderate sliding scale while patient is on steroids/Lantus/ add pre-meal aspart 5 units TID.Trend sugars and titrate by 15-20% as needed. -Obtain A1C,DM education. -Endocrinology consult as needed 5. Hypochromic,normocytic Anemia,chronic vs iron deficiency. -Stable H&H. Monitor. -We will also obtain an panel and treat accordingly. -Recommend further anemia work-up with PCP outpt. 6. Mild acute kidney injury, likely dehydration and sepsis. -Continue IV fluids. Monitor renal function closely. 7. Hypokalemia. -Replete K. Add magnesium level and treat accordingly. Plan: Continue current medical management. Plan is to transition patient to oral prednisone by tomorrow. She will be continued on broad-spectrum antibiotics. Follow-up cultures and follow-up with ID recommendations. Patient to be evaluated by ENT and dentist as outpatient after discharge as soon as possible. Patient was seen in collaboration with . Problems: Subjective 24 Hr Interval Summary Free Text/Dictation Patient remains afebrile. Left facial cellulitis improved significantly. Patient is tolerating diet now. Pain is minimal. Exam/Review of Systems Vital Signs Vitals Vital Signs Date Time Temp Pulse Resp B/P Pulse Ox O2 Delivery O2 Flow Rate FiO2 11/30/16 07:32 97.5 80 18 124/58 96 11/29/16 03:18 Room Air Intake and Output 11/29/16 11/29/16 11/30/16 15:00 23:00 07:00 Intake Total 50 ml 730 ml 1160 ml Balance 50 ml 730 ml 1160 ml Exam General: Well developed,adequately built, not in any acute distress . HEENT: Left-sided facial swelling with redness and tenderness-Improving. Normocephalic, Atraumatic, No laceration or hematoma; Eyes: PEERL, Conjunctiva clear, Anicteric sclera Neck: Supple without any lymphadenopathy, nontender, no JVD, no carotid bruits, trachea midline, no thyromegaly Cardiac: S1, S2 auscultated, regular rhythm and rate, no mumurs or gallop Pulmonary: Normal respiratory effort. Chest clear to auscultation bilaterally, no adventitious breath sounds GI: Abdomen normal to inspection. Soft, non tender, non- distended, no masses, no rebound tenderness or guarding. Bowel sounds active on all four quadrants Genitourinary: Deferred Extremities: No cyanosis, clubbing, or edema. Pulses [2+] bilaterally. Full ROM on all four extremities. No focal weakness appreciated. Neurologic: Alert to person, place, time, and situation. Affect appropriate, intact sensation. Skin: Clean,dry, and intact. No ecchymosis, no rashes, or lesions Results Result Diagram: 11/30/16 0513 11/30/16 0513 Results 24 hrs Laboratory Tests Test 11/29/16 12:18 11/29/16 17:30 11/29/16 20:57 11/30/16 02:05 Bedside Glucose 379 H 247 H 246 H 269 H Test 11/30/16 05:13 11/30/16 07:59 White Blood Count 19.7 H Red Blood Count 3.62 L Hemoglobin 10.1 L Hematocrit 31.0 L Mean Corpuscular Volume 85.6 Mean Corpuscular Hemoglobin 27.9 L Mean Corpuscular Hemoglobin Concent 32.6 Red Cell Distribution Width 12.7 Platelet Count 333 Mean Platelet Volume 11.9 H Neutrophils % 88.2 H Lymphocytes % 8.4 L Monocytes % 2.7 Eosinophils % 0.0 Basophils % 0.1 Nucleated Red Blood Cells % 0.0 Neutrophils # 17.3 H Lymphocytes # 1.7 Monocytes # 0.5 Eosinophils # 0.0 Basophils # 0.0 Nucleated Red Blood Cells # 0.0 Sodium Level 142 Potassium Level 3.3 L Chloride Level 107 Carbon Dioxide Level 25 Anion Gap 13 Blood Urea Nitrogen 42 #H Creatinine 1.03 H Glucose Level 274 H Calcium Level 8.6 Bedside Glucose 301 H Medications Medications Current Medications Diagnostic Test (Pha) (Accu-Chek) 1 ea 02 XX Last administered on 11/30/16 02 :12; Admin Dose 1 EA; Start 11/30/16 at 02:00 Diagnostic Test (Pha) (Accu-Chek) 1 ea 02 XX Last administered on 11/30/16 02 :13; Admin Dose 1 EA; Start 11/30/16 at 02:00 Miscellaneous Information 1 ea NOTE XX ; Start 11/29/16 at 04:30 Glucose (Glutose) 15 gm Q15M PRN PO DECREASED GLUCOSE; Start 11/29/16 at 04:30 Glucose (Glutose) 22.5 gm Q15M PRN PO DECREASED GLUCOSE; Start 11/29/16 at 04: 30 Dextrose (D50w Syringe) 25 ml Q15M PRN IV DECREASED GLUCOSE; Start 11/29/16 at 04:30 Dextrose (D50w Syringe) 50 ml Q15M PRN IV DECREASED GLUCOSE; Start 11/29/16 at 04:30 Glucagon (Glucagen) 1 mg Q15M PRN IM DECREASED GLUCOSE; Start 11/29/16 at 04: 30 Glucose 15 gm 15 gm Q15M PRN BUCCAL DECREASED GLUCOSE; Start 11/29/16 at 04:30 Piperacillin Sod/ Tazobactam Sod (Zosyn 2.25gm/ 50ml (Pmx)) 50 ml @ 200 mls/hr Q6 IVPB Last administered on 11/30/16 05:17; Admin Dose 200 MLS/HR; Start at 06:00 Furosemide (Lasix) 20 mg DAILY IV Last administered on 11/30/16 08:03; Admin Dose 20 MG; Start 11/29/16 at 06:00; Stop 12/01/16 at 09:00 Insulin Glargine 15 unit 15 unit DAILY@08 SC Last administered on 11/30/16 08 :20; Admin Dose 15 UNIT; Start 11/29/16 at 08:00 Vancomycin HCl/ Sodium Chloride (Vancocin/NS) 150 ml @ 75 mls/hr Q24H IVPB Last administered on 11/30/16 02:42; Admin Dose 75 MLS/HR; Start 11/30/16 at 02:00 Methylprednisolone Sodium Succinate 40 mg 40 mg Q12 IV Last administered on 08:03; Admin Dose 40 MG; Start 11/29/16 at 09:00 Sodium Chloride (NS) 1,000 ml @ 80 mls/hr [id number] IV Last administered on 00:21; Admin Dose 80 MLS/HR; Start 11/29/16 at 10:30 Morphine Sulfate (morphine) 2 mg Q4H PRN IV PAIN Last administered on 01:07; Admin Dose 2 MG; Start 11/30/16 at 00:45 JASON AMADOR NP Nov 30, 2016 10:10
[2016-11-30 10:56] LABS: IRON 31 ug/dl (35-150)
[2016-11-30 10:57] LABS: CHOL/HDL RATIO 5.7 RATIO
[2016-11-30 11:24] LABS: TOTAL IRON BINDING CAPACITY 229 ug/dl (241-421)
[2016-11-30 11:27] LABS: THYROID STIMULATING HORMONE 0.101 MIU/L (0.465-4.680)
[2016-11-30] MEDS: DEXAMETHASONE 4 MG/ML 1 ML INJ IV SCH ×3 (12:24→23:31)
[2016-11-30] MEDS ORDERED: MAGNESIUM SULFATE 2 GM/50 ML 50 ML IVPB ONE (13:00)
[2016-11-30] MEDS ORDERED: NPH, HUMAN INSULIN ISOPHANE 3ML VIAL SC ONE (13:30)
[2016-11-30 14:23] VITALS: BP 115/60; RESP 18
--- NOTE | 2016-11-30 14:53 | PN ---
DATE: 11/30/2016 SUBJECTIVE: Patient is alert, feels better. Looks comfortable, no fevers. WBC 19.7, platelets 333, neutrophils 88.2, BUN 42, creatinine 1.03. Blood sugar 501. MICROBIOLOGY: Blood cultures have been negative. DIAGNOSTICS: CT of the face revealed a large left masseter muscle with poorly defined area of low a ttenuation suggestive of underlying hematoma or abscess. Left parotid gland is also mildly edematou s. Chest x-ray on admission revealed no evidence of active cardiopulmonary disease. ANTIMICROBIALS: The patient is on Vancomycin and Zosyn. ALLERGIES: NONE. PHYSICAL EXAMINATION: GENERAL: Well-developed, elderly woman who is alert, in no distress. HEENT: Head atraumatic, normocephalic. Sclerae anicteric. Buccal mucosa dry. NECK: Supple. CHEST: Rise symmetrical. Breath sounds clear. HEART: S1, S2. ABDOMEN: Soft, bowel sounds present. EXTREMITIES: No cyanosis. SKIN: The patient has significant erythema on her left cheek with some pain on palpation. ASSESSMENT: 1. Left facial cellulitis, possible abscess as per CT of the facial bones. Questionable parotitis. 2. Poorly controlled diabetes. 3. Sepsis on admission, now with persistent leukocytosis secondary to steroids. PLAN: The patient remains clinically stable. Facial swelling per the patient is getting better. S he is on appropriate antibiotics. Consider ENT evaluation. Consider endocrinology evaluation as we ll. Dictated By: EVE PIZARRO [employer]ERCIAL CLEANER for LÓPEZ DOYLE/NTS Conf#: [id number] DID#: [id number]
--- NOTE | 2016-11-30 15:18 | QN ---
Documentation Comment Patient with uncontrolled BS ~500'S. Ordered 15 units NPH and 5 units Additional aspart. A1C=11.0. for endo consult. JASON AMADOR NP Nov 30, 2016 15:18
[2016-11-30] MEDS ORDERED: INSULIN ASPART [NOVOLOG] 3 ML PEN SC ONE ×2 (15:30→16:30)
[2016-11-30] MEDS: SOD FERRIC GLUC COMPLX 125 MG in SOD CHLORIDE 0.9% 100 ML IVPB SCH (16:10)
--- NOTE | 2016-11-30 17:27 | CONS ---
Date/Time of Note Date/Time of Note DATE: 11/30/16 TIME: 17:21 Assessment/Plan Assessment/Plan Problems: (1) Iron deficiency anemia Status: Chronic Comment: She is receiving parenteral iron at this time to replete her iron stores. Ultimate workup of this will be decided by the primary team. Her main doctor as an outpatient is sakina Ram. Qualifiers: Qualified Code: D50.9 - Iron deficiency anemia, unspecified iron deficiency anemia type (2) Diabetes mellitus type 2 in nonobese Status: Chronic Comment: Her A1c on admission of 11 indicates poor glycemic control. I will try and tighten this up. (3) Diabetes mellitus out of control Status: Chronic Comment: Her sugar control has been poor. Will need to come with the medicine that is usable and affordable and simple. Right now her sugars of taken off of the use of steroids I will compensate for that. Qualifiers: Qualified Code: E11.65 - Uncontrolled type 2 diabetes mellitus without complication, without long-term current use of insulin (4) Osteoarthritis Status: Chronic Comment: Noted. The course of steroids will actually probably give her some degree of relief here Qualifiers: Qualified Code: M17.0 - Osteoarthritis of both knees, unspecified osteoarthritis type (5) Abnormal finding on urinalysis Status: Acute Comment: The urine was not cultured on admission. It was ordered this morning and the culture has been collected and sent. Will undoubtedly be altered by the fact that she is artery been on antibiotics for at least 3 doses prior to collections (6) Tremor Status: Chronic Comment: Noted. This can be worked up as an outpatient Consultation Date/Type/Reason Admit Date/Time Nov 29, 2016 at 08:40 Date of Consultation: Nov 30, 2016 Type of Consultation: Endocrinology Reason for Consultation Diabetes mellitus type 2 out of control; possible facial cellulitis with sepsis ; iron deficiency anemia; abnormal urinalysis Referring Provider: JASON AMADOR NP Hx of Present Illness 76-year-old female previously in [facility]. She developed what was described as a dental abscess which was advancing despite antibiotics specifically Omnicef. She presents to the emergency room where she was initially labeled as sepsis due to urinary tract infection. However the patient was then reviewed by 1 of the emergency room physicians who felt she had a facial cellulitis but did not meet criteria for formally labeled as sepsis. She was admitted to the floor where she has been treated with aggressive steroid therapy for edema. Sugars which were not under adequate control of admission are now significantly worse. Constitutional: chills, febrile Eyes: no complaints ENT: other (Dental pain facial swelling) Respiratory: no complaints Cardiovascular: no complaints Gastrointestinal: no complaints Genitourinary: no complaints Musculoskeletal: other (Diffuse arthritic pains and pains in the legs) Skin: no complaints Neurologic: other (Possible distal lower extremity painful neuropathy) Endocrine: polydypsia, polyuria Psychological: nl mood/affect, no complaints Past Medical History Medical History: diabetes, other Past Surgical History Past Surgical Hx: no surgical history Family History Significant Family History: diabetes, hypertension Social History Alcohol Use: none Smoking Status: Never smoker Drug Use: none Exam/Review of Systems Vital Signs Vitals Vital Signs Date Time Temp Pulse Resp B/P Pulse Ox O2 Delivery O2 Flow Rate FiO2 11/30/16 14:23 98.0 84 18 115/60 97 11/29/16 03:18 Room Air Intake and Output 11/29/16 11/29/16 11/30/16 15:00 23:00 07:00 Intake Total 50 ml 730 ml 1160 ml Balance 50 ml 730 ml 1160 ml Exam Constitutional: alert, oriented Head: atraumatic, normocephalic Eyes: EOMI, nl conjunctiva, nl lids, nl sclera ENMT: mucosa pink and moist, nl external ears & nose, nl nasal mucosa & septum , other Neck: supple Respiratory: clear to auscultation, normal air movement Cardiovascular: nl pulses, regular rate and rhythm Results Result Diagram: 11/30/16 0513 11/30/16 1241 Results 24 hrs Laboratory Tests Test 11/29/16 17:30 11/29/16 20:57 11/30/16 02:05 11/30/16 05:13 Bedside Glucose 247 H 246 H 269 H White Blood Count 19.7 H Red Blood Count 3.62 L Hemoglobin 10.1 L Hematocrit 31.0 L Mean Corpuscular Volume 85.6 Mean Corpuscular Hemoglobin 27.9 L Mean Corpuscular Hemoglobin Concent 32.6 Red Cell Distribution Width 12.7 Platelet Count 333 Mean Platelet Volume 11.9 H Neutrophils % 88.2 H Lymphocytes % 8.4 L Monocytes % 2.7 Eosinophils % 0.0 Basophils % 0.1 Nucleated Red Blood Cells % 0.0 Neutrophils # 17.3 H Lymphocytes # 1.7 Monocytes # 0.5 Eosinophils # 0.0 Basophils # 0.0 Nucleated Red Blood Cells # 0.0 Sodium Level 142 Potassium Level 3.3 L Chloride Level 107 Carbon Dioxide Level 25 Anion Gap 13 Blood Urea Nitrogen 42 #H Creatinine 1.03 H Glucose Level 274 H Hemoglobin A1c 11.0 H Calcium Level 8.6 Magnesium Level 1.6 L Iron Level 31 L Total Iron Binding Capacity 229 L Percent Iron Saturation 14 L Triglycerides Level 111 Cholesterol Level 171 LDL Cholesterol, Calculated 119 HDL Cholesterol 30 L Cholesterol/HDL Ratio 5.7 Thyroid Stimulating Hormone (TSH) 0.101 L Free Thyroxine 2.18 Free Triiodothyronine (T3) pg/mL 3.17 Test 11/30/16 07:59 11/30/16 12:02 11/30/16 12:41 11/30/16 13:53 Bedside Glucose 301 H 503 *H 455 *H Glucose Level 501 #*H Test 11/30/16 15:15 11/30/16 17:15 Bedside Glucose 417 *H 258 H Medications Medications Please note in the emergency room the road down her medications Janumet. Patient does not recognize this name. She reports that she is on metformin, ibuprofen, and additional medicine for sugar. Current Medications Diagnostic Test (Pha) (Accu-Chek) 1 ea 02 XX Last administered on 11/30/16 02 :12; Admin Dose 1 EA; Start 11/30/16 at 02:00 Diagnostic Test (Pha) (Accu-Chek) 1 ea 02 XX Last administered on 11/30/16 02 :13; Admin Dose 1 EA; Start 11/30/16 at 02:00 Miscellaneous Information 1 ea NOTE XX ; Start 11/29/16 at 04:30 Glucose (Glutose) 15 gm Q15M PRN PO DECREASED GLUCOSE; Start 11/29/16 at 04:30 Glucose (Glutose) 22.5 gm Q15M PRN PO DECREASED GLUCOSE; Start 11/29/16 at 04: 30 Dextrose (D50w Syringe) 25 ml Q15M PRN IV DECREASED GLUCOSE; Start 11/29/16 at 04:30 Dextrose (D50w Syringe) 50 ml Q15M PRN IV DECREASED GLUCOSE; Start 11/29/16 at 04:30 Glucagon (Glucagen) 1 mg Q15M PRN IM DECREASED GLUCOSE; Start 11/29/16 at 04: 30 Glucose 15 gm 15 gm Q15M PRN BUCCAL DECREASED GLUCOSE; Start 11/29/16 at 04:30 Piperacillin Sod/ Tazobactam Sod (Zosyn 2.25gm/ 50ml (Pmx)) 50 ml @ 200 mls/hr Q6 IVPB Last administered on 11/30/16 12:24; Admin Dose 200 MLS/HR; Start at 06:00 Furosemide (Lasix) 20 mg DAILY IV Last administered on 11/30/16 08:03; Admin Dose 20 MG; Start 11/29/16 at 06:00; Stop 12/01/16 at 09:00 Insulin Glargine 15 unit 15 unit DAILY@08 SC Last administered on 11/30/16 08 :20; Admin Dose 15 UNIT; Start 11/29/16 at 08:00 Vancomycin HCl 750 mg/Sodium Chloride 150 ml @ 75 mls/hr Q24H IVPB Last administered on 11/30/16 02:42; Admin Dose 75 MLS/HR; Start 11/30/16 at 02:00 Sodium Chloride (NS) 1,000 ml @ 80 mls/hr [id number] IV Last administered on 00:21; Admin Dose 80 MLS/HR; Start 11/29/16 at 10:30 Morphine Sulfate (morphine) 2 mg Q4H PRN IV PAIN Last administered on 01:07; Admin Dose 2 MG; Start 11/30/16 at 00:45 Dexamethasone 1 mg 1 mg Q6 IV Last administered on 11/30/16 12:24; Admin Dose 1 MG; Start 11/30/16 at 12:00 Ferric Sodium Gluconate Complex/ Sodium Chloride (Ferrlecit/NS) 110 ml @ 100 mls/hr Q24H IVPB Last administered on 11/30/16 16:10; Admin Dose 100 MLS/HR; Start 11/30/16 at 14:00; Stop 12/02/16 at 15:05 Ferrous Sulfate (Ferrous Sulfate (Ec)) 325 mg BID PO ; Start 12/03/16 at 09:00 Docusate Sodium (Colace) 100 mg BID PO ; Start 11/30/16 at 21:00 ESTELA MARTIN MD Nov 30, 2016 17:27
--- NOTE | 2016-11-30 18:17 | RADRPT ---
Echocardiogram Report Patient Name: DHARMESH AGARWAL Gender: Female Date: 1940 Study Date: 29-Nov-2016 Fibre Composite Technician: SAAD Location: I Ref. Physician: JASON AMADOR Quality: Adequate Procedures: Transthoracic echocardiogram with complete 2D, M-Mode, and doppler examination. Indications: Tooth abcess. 2D/M Mode Doppler Measurement Value Normal Ranges Measurement Value Normal Ranges AoR Diam MM 2.9 cm AV Peak [place] 1.2 m/sec LVIDd 2D 4.0 3.5 - 5.6 cm AV Peak PG 6.2 mmHg LVIDs 2D 2.6 2.1 - 4.1 cm LVOT Peak [place] 1.0 m/sec LVPWd 2D 1.2 0.6 - 1.1 cm LVOT Peak PG 4.0 mmHg IVSd 2D 1.3 0.6 - 1.1 cm MV E Peak [place] 0.5 m/sec EDV 2D 72.0 cm3 MV A Peak [place] 0.9 m/sec ESV 2D 17.7 cm3 MV E/A 0.6 LA Dimen 2D 3.9 2.3 - 4.0 cm MV Decel Time 223 msec MV Decel [place] 2 MV E/A 0.6 PV Peak [place] 0.9 m/sec PV Peak PG 3.0 mmHg Findings Left Ventricle: Normal left ventricular systolic function. Normal left ventricular cavity size. Mild concentric left ventricular hypertrophy. Ejection fraction is visually estimated at 60 %. Tissue Doppler/Mitral Doppler indices are consistent with impaired relaxation (Stage I diastolic dysfunction). E/E`=6. Right Ventricle: Normal right ventricular size. Normal right ventricular systolic function. Left Atrium: The left atrium is normal in size. Right Atrium: The right atrium is normal in size. Atrial Septum: Normal atrial septum. Mitral Valve: Normal appearance of the mitral valve. Minimal mitral annular calcification. Trace mitral regurgitation. Aortic Valve: No significant aortic stenosis or insufficiency. Non coronary cusp appears mildly calcified. Tricuspid Valve: Normal appearance of the tricuspid valve. There is trace tricuspid regurgitation. Pulmonic Valve: Normal pulmonic valve appearance. There is trace pulmonic regurgitation. Pericardium: Normal pericardium with no significant pericardial effusion. No pleural effusion noted. Aorta: Normal aortic root. IVC: Normal size and normal respiratory collapse consistent with normal right atrial pressure. Pulmonary Artery: Normal pulmonary artery size. Conclusions 1.Normal left ventricular systolic function. Normal left ventricular cavity size. Mild concentric left ventricular hypertrophy. Ejection fraction is visually estimated at 60 %. Tissue Doppler/Mitral Doppler indices are consistent with impaired relaxation (Stage I diastolic dysfunction). E/E`=6. 2.Normal appearance of the mitral valve. Minimal mitral annular calcification. Trace mitral regurgitation. 3.Normal appearance of the tricuspid valve. There is trace tricuspid regurgitation. 4.Normal pulmonic valve appearance. There is trace pulmonic regurgitation. Electronically Signed By: See Arredondo 30-Nov-2016 18:17:14 -2600 Patient Name: DHARMESH AGARWAL Study Date: 29-Nov-2016 [id number]
[2016-11-30] MEDS: NPH, HUMAN INSULIN ISOPHANE 3ML VIAL SC SCH ×2 (18:47→23:44)
[2016-11-30 20:12] VITALS: BP 116/58; RESP 18
[2016-11-30] MEDS: DOCUSATE SODIUM 100 MG CAP PO SCH (20:41)
[2016-11-30] MEDS ORDERED: HYDROCODONE/APAP (5/325) TAB PO PRN (23:00)
[2016-12-01] MEDS: ACCU-CHEK XX SCH ×2 (02:00)
[2016-12-01] MEDS: VANCOMYCIN 750 MG in SOD CHLORIDE 0.9% 150 ML IVPB SCH (02:24)
[2016-12-01 02:26] VITALS: BP 129/61; RESP 18
[2016-12-01 05:40] LABS: BASOPHILS % 0.1 % (0.0-2.0); HEMATOCRIT 30.5 % (37.0-47.0); LYMPHOCYTES # 1.7 10^3/ul (0.8-2.9); LYMPHOCYTES % 10.7 % (15.0-51.0); MEAN CORPUSCULAR HEMOGLOBIN 28.2 pg (29.0-33.0); MEAN CORPUSCULAR HGB CONC 32.8 g/dl (32.0-37.0); MEAN CORPUSCULAR VOLUME 85.9 fl (82.0-101.0); MEAN PLATELET VOLUME 11.6 fl (7.4-10.4); MONOCYTES % 6.1 % (0.0-11.0); NEUTROPHIL # 12.9 10^3/ul (1.6-7.5); NEUTROPHILS % 82.2 % (39.0-77.0); PLATELET COUNT 323 10^3/UL (140-415); RED BLOOD COUNT 3.55 10^6/ul (4.20-5.40); RED CELL DISTRIBUTION WIDTH 12.9 % (11.5-14.5); WHITE BLOOD COUNT 15.7 10^3/ul (4.8-10.8)
[2016-12-01] MEDS: DEXAMETHASONE 4 MG/ML 1 ML INJ IV SCH ×3 (06:37→17:56)
[2016-12-01] MEDS: PIPER-TAZO 2.25 GM (PMX) 50 ML IVPB SCH ×3 (06:38→17:56)
[2016-12-01 06:43] LABS: CALCIUM 8.6 mg/dl (8.4-10.2); CREATININE 0.99 mg/dl (0.44-1.00); POTASSIUM 3.6 mmol/L (3.5-5.1)
[2016-12-01] MEDS: NPH, HUMAN INSULIN ISOPHANE 3ML VIAL SC SCH ×3 (06:53→17:54)
[2016-12-01 07:50] VITALS: BP 137/62; RESP 18
[2016-12-01] MEDS: INSULIN ASPART [NOVOLOG] 3 ML PEN SC SCH ×7 (08:44→21:00)
[2016-12-01] MEDS: INSULIN GLARGINE [LANtus] 3 ML PEN SC SCH (08:46)
[2016-12-01] MEDS: DOCUSATE SODIUM 100 MG CAP PO SCH ×2 (08:48→21:30)
[2016-12-01] MEDS: FUROSEMIDE 20 MG INJ IV SCH (08:48)
--- NOTE | 2016-12-01 10:26 | PN ---
Date/Time of Note Date/Time of Note DATE: 12/01/16 TIME: : Assessment/Plan VTE Prophylaxis VTE Prophylaxis Intervention: ambulation, SCD's Lines/Catheters IV Catheter Type (from Nrs): Peripheral IV Assessment/Plan Chief Complaint/Hosp Course 76-year-old female presenting with s left-sided facial swelling, pain, and fevers who apparently had a dental visit last week and was told that she had a dental infection. 1.Left facial cellulitis with underlying recent tooth abscess-failed outpatient therapy. Initial CT with suggestion of hematoma/abscess. A follow-up soft tissue ultrasound on 11/29/2016 without any evidence of hematoma or abscess. Improved significantly. -ID evaluation appreciated. Continue steroids (will change to Decadron IV), broad-spectrum antibiotics and follow-up cultures and 2D echocardiogram. -I spoke with , and per him, there is no abscess to be drained at this time therefore, she does not need any inpatient ENT workup. Patient can be discharged on clindamycin and Medrol-dose pack with outpatient dental follow -up. -Foremost priority is to have patient follow-up with her dentist after discharge for infected tooth extraction (Left lower molar) after she received appropriate antibiotics as soon as possible 2. Sepsis,present on admission secondary to #1. Resolving. Ofnote, patient now on steroids,therefore WBC counts does not actually reflect the severity of sepsis. -Treatment as above.F/u final cultures-So far negative. 3.Positive urinalysis, suggestive of urinary tract infection. -Unable to add urine culture to the admission specimen. Please note that patient received abxx3 days prior to current culture specimen and this can yield a negative culture at this time. -Empirically treat with abx for UTI. 4.Poorly controlled Type 2 diabetes with uncontrolled hyperglycemia 2/2 to steroids +DM. Now with stable glycemic status. A1C 11.0 -Endo eval greatly appreciated. On Accu-Cheks/moderate sliding scale/Lantus 15 units/pre-meal aspart 5 units TID/NPH with Decadron Q6H. -DM education 5. Iron deficiency anemia. -Stable H&H. Monitor. -On Iron replacement and Recommend further anemia work-up with PCP as outpt. 6. Mild acute kidney injury, likely dehydration and sepsis.Resolved. -Continue IV fluids. Monitor renal function closely. 7. Hypokalemia.Resolved -Replete K. Add magnesium level and treat accordingly. Plan: Continue current medical management. She will be continued on broad- spectrum antibiotics and steroids to aid in swelling. Disp: I spoke with , and per him, there is no abscess to be drained at this time therefore, she does not need any inpatient ENT workup. Consider discharge planning soon on clindamycin and Medrol dose pack and dentist follow- up if okay with ID and until standpoint. Patient was seen in collaboration with . Problems: Subjective 24 Hr Interval Summary Free Text/Dictation Overall with significant improvement in left facial swelling. Remains afebrile. Exam/Review of Systems Vital Signs Vitals Vital Signs Date Time Temp Pulse Resp B/P Pulse Ox O2 Delivery O2 Flow Rate FiO2 12/01/16 07:50 97.4 64 18 137/62 99 11/29/16 03:18 Room Air Intake and Output 11/30/16 11/30/16 12/01/16 15:00 23:00 07:00 Intake Total 50 ml 2340 ml 750 ml Balance 50 ml 2340 ml 750 ml Exam General: Well developed,adequately built, not in any acute distress . HEENT: Left-sided facial swelling with redness and tenderness-Improved significantly. Normocephalic, Atraumatic, No laceration or hematoma; Eyes: PEERL , Conjunctiva clear, Anicteric sclera Neck: Supple without any lymphadenopathy, nontender, no JVD, no carotid bruits, trachea midline, no thyromegaly Cardiac: S1, S2 auscultated, regular rhythm and rate, no mumurs or gallop Pulmonary: Normal respiratory effort. Chest clear to auscultation bilaterally, no adventitious breath sounds GI: Abdomen normal to inspection. Soft, non tender, non- distended, no masses, no rebound tenderness or guarding. Bowel sounds active on all four quadrants Genitourinary: Deferred Extremities: No cyanosis, clubbing, or edema. Pulses [2+] bilaterally. Full ROM on all four extremities. No focal weakness appreciated. Neurologic: Alert to person, place, time, and situation. Affect appropriate, intact sensation. Skin: Clean,dry, and intact. No ecchymosis, no rashes, or lesions Results Result Diagram: 12/01/16 0501 12/01/16 0501 Results 24 hrs Laboratory Tests Test 11/30/16 12:02 11/30/16 12:41 11/30/16 13:53 11/30/16 15:15 Bedside Glucose 503 *H 455 *H 417 *H Glucose Level 501 #*H Test 11/30/16 17:15 11/30/16 20:43 11/30/16 23:28 12/01/16 05:01 Bedside Glucose 258 H 155 121 White Blood Count 15.7 #H Red Blood Count 3.55 L Hemoglobin 10.0 L Hematocrit 30.5 L Mean Corpuscular Volume 85.9 Mean Corpuscular Hemoglobin 28.2 L Mean Corpuscular Hemoglobin Concent 32.8 Red Cell Distribution Width 12.9 Platelet Count 323 Mean Platelet Volume 11.6 H Neutrophils % 82.2 H Lymphocytes % 10.7 L Monocytes % 6.1 Eosinophils % 0.0 Basophils % 0.1 Nucleated Red Blood Cells % 0.0 Neutrophils # 12.9 H Lymphocytes # 1.7 Monocytes # 1.0 H Eosinophils # 0.0 Basophils # 0.0 Nucleated Red Blood Cells # 0.0 Sodium Level 144 Potassium Level 3.6 Chloride Level 109 Carbon Dioxide Level 26 Anion Gap 13 Blood Urea Nitrogen 45 H Creatinine 0.99 Glucose Level 124 # Calcium Level 8.6 Test 12/01/16 06:36 12/01/16 08:21 Bedside Glucose 147 141 Medications Medications Current Medications Diagnostic Test (Pha) (Accu-Chek) 1 ea 02 XX Last administered on 11/30/16 02 :12; Admin Dose 1 EA; Start 11/30/16 at 02:00 Diagnostic Test (Pha) (Accu-Chek) 1 ea 02 XX Last administered on 11/30/16 02 :13; Admin Dose 1 EA; Start 11/30/16 at 02:00 Miscellaneous Information 1 ea NOTE XX ; Start 11/29/16 at 04:30 Glucose (Glutose) 15 gm Q15M PRN PO DECREASED GLUCOSE; Start 11/29/16 at 04:30 Glucose (Glutose) 22.5 gm Q15M PRN PO DECREASED GLUCOSE; Start 11/29/16 at 04: 30 Dextrose (D50w Syringe) 25 ml Q15M PRN IV DECREASED GLUCOSE; Start 11/29/16 at 04:30 Dextrose (D50w Syringe) 50 ml Q15M PRN IV DECREASED GLUCOSE; Start 11/29/16 at 04:30 Glucagon (Glucagen) 1 mg Q15M PRN IM DECREASED GLUCOSE; Start 11/29/16 at 04: 30 Glucose 15 gm 15 gm Q15M PRN BUCCAL DECREASED GLUCOSE; Start 11/29/16 at 04:30 Piperacillin Sod/ Tazobactam Sod (Zosyn 2.25gm/ 50ml (Pmx)) 50 ml @ 200 mls/hr Q6 IVPB Last administered on 12/01/16 06:38; Admin Dose 200 MLS/HR; Start at 06:00 Insulin Glargine 15 unit 15 unit DAILY@08 SC Last administered on 12/01/16 08 :46; Admin Dose 15 UNIT; Start 11/29/16 at 08:00 Vancomycin HCl 750 mg/Sodium Chloride 150 ml @ 75 mls/hr Q24H IVPB Last administered on 12/01/16 02:24; Admin Dose 75 MLS/HR; Start 11/30/16 at 02:00 Sodium Chloride (NS) 1,000 ml @ 80 mls/hr [id number] IV Last administered on 20:41; Admin Dose 80 MLS/HR; Start 11/29/16 at 10:30 Morphine Sulfate (morphine) 2 mg Q4H PRN IV PAIN Last administered on 01:07; Admin Dose 2 MG; Start 11/30/16 at 00:45 Dexamethasone 1 mg 1 mg Q6 IV Last administered on 12/01/16 06:37; Admin Dose 1 MG; Start 11/30/16 at 12:00 Ferric Sodium Gluconate Complex/ Sodium Chloride (Ferrlecit/NS) 110 ml @ 100 mls/hr Q24H IVPB Last administered on 11/30/16 16:10; Admin Dose 100 MLS/HR; Start 11/30/16 at 14:00; Stop 12/02/16 at 15:05 Ferrous Sulfate (Ferrous Sulfate (Ec)) 325 mg BID PO ; Start 12/03/16 at 09:00 Docusate Sodium (Colace) 100 mg BID PO Last administered on 12/01/16 08:48; Admin Dose 100 MG; Start 11/30/16 at 21:00 Insulin Human NPH (Humulin N) 6 unit Q6 SC Last administered on 12/01/16 06: 53; Admin Dose 6 UNIT; Start 11/30/16 at 18:00 Acetaminophen/ Hydrocodone Bitart ([place] (5/325)) 1 tab Q4H PRN PO PAIN Last administered on 11/30/16 23:31; Admin Dose 1 TAB; Start 11/30/16 at 23:00 Acetaminophen/ Hydrocodone Bitart ([place] (10/325)) 1 tab Q4H PRN PO PAIN; Start 11/30/16 at 23:00 JASON AMADOR NP Dec 01, 2016 10:26
[2016-12-01] MEDS: SOD CHLORIDE 0.9% 1,000 ML IV SCH (12:31)
[2016-12-01] MEDS ORDERED: LACTATED RINGER'S 500 ML IV ONE (14:00)
--- NOTE | 2016-12-01 14:06 | CONS ---
Date/Time of Note Date/Time of Note DATE: 12/01/16 TIME: 14:05 Consult Date/Type/Reason Admit Date/Time Nov 29, 2016 at 08:40 Initial Consult Date 11/30/16 Type of Consultation: ID Ordering Provider: JASON AMADOR NP Objective Vital Signs Date Time Temp Pulse Resp B/P Pulse Ox O2 Delivery O2 Flow Rate FiO2 12/01/16 07:50 97.4 64 18 137/62 99 11/29/16 03:18 Room Air Intake and Output 11/30/16 11/30/16 12/01/16 15:00 23:00 07:00 Intake Total 50 ml 2340 ml 750 ml Balance 50 ml 2340 ml 750 ml Results/Medications Result Diagram: 12/01/16 0501 12/01/16 0501 Results 24 hrs Laboratory Tests Test 11/30/16 15:15 11/30/16 17:15 11/30/16 20:43 11/30/16 23:28 Bedside Glucose 417 *H 258 H 155 121 Test 12/01/16 05:01 12/01/16 06:36 12/01/16 08:21 12/01/16 12:15 White Blood Count 15.7 #H Red Blood Count 3.55 L Hemoglobin 10.0 L Hematocrit 30.5 L Mean Corpuscular Volume 85.9 Mean Corpuscular Hemoglobin 28.2 L Mean Corpuscular Hemoglobin Concent 32.8 Red Cell Distribution Width 12.9 Platelet Count 323 Mean Platelet Volume 11.6 H Neutrophils % 82.2 H Lymphocytes % 10.7 L Monocytes % 6.1 Eosinophils % 0.0 Basophils % 0.1 Nucleated Red Blood Cells % 0.0 Neutrophils # 12.9 H Lymphocytes # 1.7 Monocytes # 1.0 H Eosinophils # 0.0 Basophils # 0.0 Nucleated Red Blood Cells # 0.0 Sodium Level 144 Potassium Level 3.6 Chloride Level 109 Carbon Dioxide Level 26 Anion Gap 13 Blood Urea Nitrogen 45 H Creatinine 0.99 Glucose Level 124 # Calcium Level 8.6 Bedside Glucose 147 141 183 Medications Current Medications Diagnostic Test (Pha) (Accu-Chek) 1 ea XX Last administered on 11/30/16t 02 :12; Admin Dose 1 EA; Start 11/30/16 at 02:00 Diagnostic Test (Pha) (Accu-Chek) ea 02 XX Last administered on 11/30/16 02 :13; Admin Dose 1 EA; Start 11/30/16 at 02:00 Miscellaneous Information 1 ea NOTE XX ; Start 11/29/16 at 04:30 Glucose (Glutose) 15 gm Q15M PRN PO DECREASED GLUCOSE; Start 11/29/16 at 04:30 Glucose (Glutose) 22.5 gm Q15M PRN PO DECREASED GLUCOSE; Start 11/29/16 at 04: 30 Dextrose (D50w Syringe) 25 ml Q15M PRN IV DECREASED GLUCOSE; Start 11/29/16 at 04:30 Dextrose (D50w Syringe) 50 ml Q15M PRN IV DECREASED GLUCOSE; Start 11/29/16 at 04:30 Glucagon (Glucagen) 1 mg Q15M PRN IM DECREASED GLUCOSE; Start 11/29/16 at 04: 30 Glucose 15 gm 15 gm Q15M PRN BUCCAL DECREASED GLUCOSE; Start 11/29/16 at 04:30 Piperacillin Sod/ Tazobactam Sod (Zosyn 2.25gm/ 50ml (Pmx)) 50 ml @ 200 mls/hr Q6 IVPB Last administered on 12/01/16 12:31; Admin Dose 200 MLS/HR; Start at 06:00 Insulin Glargine 15 unit 15 unit DAILY@08 SC Last administered on 12/01/16 08 :46; Admin Dose 15 UNIT; Start 11/29/16 at 08:00 Vancomycin HCl 750 mg/Sodium Chloride 150 ml @ 75 mls/hr Q24H IVPB Last administered on 12/01/16 02:24; Admin Dose 75 MLS/HR; Start 11/30/16 at 02:00 Sodium Chloride (NS) 1,000 ml @ 80 mls/hr [id number] IV Last administered on 12:31; Admin Dose 80 MLS/HR; Start 11/29/16 at 10:30 Morphine Sulfate (morphine) 2 mg Q4H PRN IV PAIN Last administered on 01:07; Admin Dose 2 MG; Start 11/30/16 at 00:45 Dexamethasone 1 mg 1 mg Q6 IV Last administered on 12/01/16 12:25; Admin Dose 1 MG; Start 11/30/16 at 12:00 Ferric Sodium Gluconate Complex/ Sodium Chloride (Ferrlecit/NS) 110 ml @ 100 mls/hr Q24H IVPB Last administered on 11/30/16 16:10; Admin Dose 100 MLS/HR; Start 11/30/16 at 14:00; Stop 12/02/16 at 15:05 Ferrous Sulfate (Ferrous Sulfate (Ec)) 325 mg BID PO ; Start 12/03/16 at 09:00 Docusate Sodium (Colace) 100 mg BID PO Last administered on 12/01/16 08:48; Admin Dose 100 MG; Start 11/30/16 at 21:00 Insulin Human NPH (Humulin N) 6 unit Q6 SC Last administered on 12/01/16 12: 25; Admin Dose 6 UNIT; Start 11/30/16 at 18:00 Acetaminophen/ Hydrocodone Bitart ([place] (5/325)) 1 tab Q4H PRN PO PAIN Last administered on 11/30/16 23:31; Admin Dose 1 TAB; Start 11/30/16 at 23:00 Acetaminophen/ Hydrocodone Bitart ([place] (10/325)) 1 tab Q4H PRN PO PAIN; Start 11/30/16 at 23:00 Miscellaneous Information (*Rx Drug Level Order Reminder*) 1 ONCE ONCE XX ; Start 12/02/16 at 01:00; Stop 12/02/16 at 01:01 Assessment/Plan Chief Complaint/Hosp Course SUBJECTIVE: Patient is sleeping, looks comfortable, no fevers. MICROBIOLOGY: Blood cultures have been negative. DIAGNOSTICS: CT of the face revealed a large left masseter muscle with poorly defined area of low attenuation suggestive of underlying hematoma or abscess. Left parotid gland is also mildly edematous. Chest x-ray on admission revealed no evidence of active cardiopulmonary disease. ANTIMICROBIALS: Vancomycin and Zosyn. ALLERGIES: NONE. PHYSICAL EXAMINATION: GENERAL: Well-developed, elderly woman who is alert, in no distress. HEENT: Head atraumatic, normocephalic. Sclerae anicteric. Buccal mucosa dry. NECK: Supple. CHEST: Rise symmetrical. Breath sounds clear. HEART: S1, S2. ABDOMEN: Soft, bowel sounds present. EXTREMITIES: No cyanosis. SKIN: The patient has significant erythema on her left cheek with some pain on palpation. ASSESSMENT: 1. Left facial cellulitis, possible abscess as per CT of the facial bones. Questionable parotitis. 2. Poorly controlled diabetes. 3. Sepsis on admission, now with persistent leukocytosis secondary to steroids. PLAN: The patient remains stable. Continue abx, steroids taper, BS control. No rec-s for surgical procedure per ENT/primary note. [facility] staff Problems: EVE PIZARRO NP Dec 01, 2016 14:06
[2016-12-01 14:32] VITALS: BP 124/60; RESP 14
[2016-12-01] MEDS: SOD FERRIC GLUC COMPLX 125 MG in SOD CHLORIDE 0.9% 100 ML IVPB SCH (14:36)
--- NOTE | 2016-12-01 18:19 | CONS ---
Date/Time of Note Date/Time of Note DATE: 12/01/16 TIME: 18:16 Assessment/Plan Assessment/Plan Chief Complaint/Hosp Course 76-year-old female previously in reasonable health. She developed what was described as a dental abscess which was advancing despite antibiotics specifically Omnicef. She presents to the emergency room where she was initially labeled as sepsis due to urinary tract infection. However the patient was then reviewed by 1 of the emergency room physicians who felt she had a facial cellulitis but did not meet criteria for formally labeled as sepsis. She was admitted to the floor where she has been treated with aggressive steroid therapy for edema. Sugars which were not under adequate control of admission are now significantly worse. Problems: (1) Dental abscess Status: Acute Comment: She is on antibiotics. ENT a reportedly has seen the patient and will follow along. Patient will continue with antibiotics and hopefully this will resolve without needing more aggressive intervention. (2) Diabetes mellitus out of control Status: Chronic Comment: Sugars were especially poor while on steroids. We have made some adjustments in his sugars are coming into line nicely. Please note that is critical as the steroids to reduce that the NPH insulin also be reduced or stopped. Qualifiers: Diabetes mellitus type: type 2 Diabetes mellitus complication status: without complication Diabetes mellitus terminal gauger insulin use: without prison use Qualified Code: E11.65 - Uncontrolled type 2 diabetes mellitus without complication, without long-term current use of insulin Consultation Date/Type/Reason Admit Date/Time Nov 29, 2016 at 08:40 Initial Consult Date 11/30/16 Type of Consultation: Endocrinology Reason for Consultation Diabetes mellitus type 2 with inadequate control as an outpatient now in the hospital on steroids Referring Provider: JASON AMADOR NP 24 HR Interval Summary Constitutional: improved Detailed Summary ENT: other (Left facial pain and swelling) Respiratory: no complaints, other (No stridor no shortness of breath no wheezing) Cardiovascular: no complaints Gastrointestinal: no complaints Exam/Review of Systems Vital Signs Vitals Vital Signs Date Time Temp Pulse Resp B/P Pulse Ox O2 Delivery O2 Flow Rate FiO2 12/01/16 14:32 97.9 70 14 124/60 100 11/29/16 03:18 Room Air Intake and Output 11/30/16 11/30/16 12/01/16 15:00 23:00 07:00 Intake Total 50 ml 2340 ml 750 ml Balance 50 ml 2340 ml 750 ml Results No changes grossly and physical exam although the left side of the face is less tender although still swollen Result Diagram: 12/01/16 0501 12/01/16 0501 Results 24 hrs Laboratory Tests Test 11/30/16 20:43 11/30/16 23:28 12/01/16 05:01 12/01/16 06:36 Bedside Glucose 155 121 147 White Blood Count 15.7 #H Red Blood Count 3.55 L Hemoglobin 10.0 L Hematocrit 30.5 L Mean Corpuscular Volume 85.9 Mean Corpuscular Hemoglobin 28.2 L Mean Corpuscular Hemoglobin Concent 32.8 Red Cell Distribution Width 12.9 Platelet Count 323 Mean Platelet Volume 11.6 H Neutrophils % 82.2 H Lymphocytes % 10.7 L Monocytes % 6.1 Eosinophils % 0.0 Basophils % 0.1 Nucleated Red Blood Cells % 0.0 Neutrophils # 12.9 H Lymphocytes # 1.7 Monocytes # 1.0 H Eosinophils # 0.0 Basophils # 0.0 Nucleated Red Blood Cells # 0.0 Sodium Level 144 Potassium Level 3.6 Chloride Level 109 Carbon Dioxide Level 26 Anion Gap 13 Blood Urea Nitrogen 45 H Creatinine 0.99 Glucose Level 124 # Calcium Level 8.6 Test 12/01/16 08:21 12/01/16 12:15 12/01/16 17:41 Bedside Glucose 141 183 112 Medications Medications Current Medications Diagnostic Test (Pha) (Accu-Chek) ea XX Last administered on 11/30/16 02 :12; Admin Dose 1 EA; Start 11/30/16 at 02:00 Diagnostic Test (Pha) (Accu-Chek) ea XX Last administered on 11/30/16 02 :13; Admin Dose 1 EA; Start 11/30/16 at 02:00 Miscellaneous Information 1 ea NOTE XX ; Start 11/29/16 at 04:30 Glucose (Glutose) 15 gm Q15M PRN PO DECREASED GLUCOSE; Start 11/29/16 at 04:30 Glucose (Glutose) 22.5 gm Q15M PRN PO DECREASED GLUCOSE; Start 11/29/16 at 04: 30 Dextrose (D50w Syringe) 25 ml Q15M PRN IV DECREASED GLUCOSE; Start 11/29/16 at 04:30 Dextrose (D50w Syringe) 50 ml Q15M PRN IV DECREASED GLUCOSE; Start 11/29/16 at 04:30 Glucagon (Glucagen) 1 mg Q15M PRN IM DECREASED GLUCOSE; Start 11/29/16 at 04: 30 Glucose 15 gm 15 gm Q15M PRN BUCCAL DECREASED GLUCOSE; Start 11/29/16 at 04:30 Piperacillin Sod/ Tazobactam Sod (Zosyn 2.25gm/ 50ml (Pmx)) 50 ml @ 200 mls/hr Q6 IVPB Last administered on 12/01/16 17:56; Admin Dose 200 MLS/HR; Start at 06:00 Insulin Glargine 15 unit 15 unit DAILY@08 SC Last administered on 12/01/16 08 :46; Admin Dose 15 UNIT; Start 11/29/16 at 08:00 Vancomycin HCl 750 mg/Sodium Chloride 150 ml @ 75 mls/hr Q24H IVPB Last administered on 12/01/16 02:24; Admin Dose 75 MLS/HR; Start 11/30/16 at 02:00 Sodium Chloride (NS) 1,000 ml @ 80 mls/hr [id number] IV Last administered on 12:31; Admin Dose 80 MLS/HR; Start 11/29/16 at 10:30 Morphine Sulfate (morphine) 2 mg Q4H PRN IV PAIN Last administered on 01:07; Admin Dose 2 MG; Start 11/30/16 at 00:45 Dexamethasone 1 mg 1 mg Q6 IV Last administered on 12/01/16 17:56; Admin Dose 1 MG; Start 11/30/16 at 12:00 Ferric Sodium Gluconate Complex/ Sodium Chloride (Ferrlecit/NS) 110 ml @ 100 mls/hr Q24H IVPB Last administered on 12/01/16 14:36; Admin Dose 100 MLS/HR; Start 11/30/16 at 14:00; Stop 12/02/16 at 15:05 Ferrous Sulfate (Ferrous Sulfate (Ec)) 325 mg BID PO ; Start 12/03/16 at 09:00 Docusate Sodium (Colace) 100 mg BID PO Last administered on 12/01/16 08:48; Admin Dose 100 MG; Start 11/30/16 at 21:00 Insulin Human NPH (Humulin N) 6 unit Q6 SC Last administered on 12/01/16 17: 54; Admin Dose 6 UNIT; Start 11/30/16 at 18:00 Acetaminophen/ Hydrocodone Bitart ([place] (5/325)) 1 tab Q4H PRN PO PAIN Last administered on 11/30/16 23:31; Admin Dose 1 TAB; Start 11/30/16 at 23:00 Acetaminophen/ Hydrocodone Bitart ([place] (10/325)) 1 tab Q4H PRN PO PAIN; Start 11/30/16 at 23:00 Miscellaneous Information (*Rx Drug Level Order Reminder*) 1 ONCE ONCE XX ; Start 12/02/16 at 01:00; Stop 12/02/16 at 01:01 ESTELA MARTIN MD Dec 01, 2016 18:19
[2016-12-01 20:10] VITALS: BP 123/59; RESP 22
[2016-12-01] MEDS: HYDROCODONE/APAP (10/325) TAB PO PRN (21:35)
[2016-12-02] MEDS: PIPER-TAZO 2.25 GM (PMX) 50 ML IVPB SCH ×4 (00:47→21:00)
[2016-12-02] MEDS: DEXAMETHASONE 4 MG/ML 1 ML INJ IV SCH ×5 (01:33→23:53)
[2016-12-02] MEDS: ACCU-CHEK XX SCH (02:00)
[2016-12-02 02:52] VITALS: BP 123/58; RESP 18
[2016-12-02] MEDS: SOD CHLORIDE 0.9% 1,000 ML IV SCH ×2 (02:53→13:30)
[2016-12-02] MEDS ORDERED: VANCOMYCIN 1 GM in NS 250 ML IVPB SCH (03:00)
[2016-12-02 05:39] LABS: BASOPHILS % 0.1 % (0.0-2.0); EOSINOPHILS % 0.1 % (0.0-7.0); HEMATOCRIT 28.8 % (37.0-47.0); HEMOGLOBIN 9.4 g/dl (12.0-16.0); LYMPHOCYTES % 18.7 % (15.0-51.0); MEAN CORPUSCULAR HEMOGLOBIN 28.4 pg (29.0-33.0); MEAN CORPUSCULAR HGB CONC 32.6 g/dl (32.0-37.0); MONOCYTES % 9.6 % (0.0-11.0); NEUTROPHIL # 7.6 10^3/ul (1.6-7.5); PLATELET COUNT 282 10^3/UL (140-415); RED BLOOD COUNT 3.31 10^6/ul (4.20-5.40); WHITE BLOOD COUNT 10.8 10^3/ul (4.8-10.8)
[2016-12-02] MEDS: NPH, HUMAN INSULIN ISOPHANE 3ML VIAL SC SCH ×5 (06:00→23:59)
[2016-12-02 06:38] LABS: CREATININE 0.9 mg/dl (0.44-1.00); POTASSIUM 3.9 mmol/L (3.5-5.1)
[2016-12-02 07:26] VITALS: BP 142/71; RESP 18
[2016-12-02] MEDS: INSULIN ASPART [NOVOLOG] 3 ML PEN SC SCH ×7 (08:07→21:00)
[2016-12-02] MEDS: DOCUSATE SODIUM 100 MG CAP PO SCH ×2 (08:16→21:08)
[2016-12-02] MEDS: POLYETHYLENE GLYCOL 17 GM PACKET PO SCH (08:16)
[2016-12-02] MEDS: INSULIN GLARGINE [LANtus] 3 ML PEN SC SCH (08:38)
--- NOTE | 2016-12-02 10:20 | PDOCDIS ---
Discharge Instructions CONDITION Patient Condition: Stable HOME CARE INSTRUCTIONS: Special Diet: PUREE DIET FOLLOW UP/APPOINTMENTS Follow-up Plan 1.Follow up with primary care physician in 1 week If you don't have one please let someone know, we can give you resources that may help you pick one. You may also call your insurance company to assign one to you. Review your medication list with your nurse before leaving and if you need new prescriptions please let your nurse know. I may have made changes to your home medications or given you new prescriptions, please let your primary doctor know as well. Stay compliant with your medications and report any side effects to your PCP or pharmacist. Return to the ER if you have any concerns and cannot reach your doctors or call your insurance company, they usually have a nurse that can help you. 2. Call 911 or go to the nearest emergency room if experiencing loss of consciousness, dizziness, chest pain, shortness of breath, vomiting/abdominal pain, speech difficulties, motor weakness or any unusual symptoms. Other orders: Follow-up with dentist as soon as possible. Also recommend outpatient ENT Follow-up JASON AMADOR NP Dec 02, 2016 10:20
[2016-12-02] MEDS ORDERED: CLIN-73 PO ×2 (10:24→11:05)
[2016-12-02] MEDS ORDERED: LANT3I SC (10:24)
[2016-12-02] MEDS ORDERED: MED4DP PO (10:24)
[2016-12-02] MEDS ORDERED: NOVO3I SC (10:24)
[2016-12-02] MEDS ORDERED: FAMO-96 PO (10:25)
--- NOTE | 2016-12-02 10:31 | PN ---
Date/Time of Note Date/Time of Note DATE: 12/02/16 TIME: 10:26 Assessment/Plan VTE Prophylaxis VTE Prophylaxis Intervention: ambulation Lines/Catheters IV Catheter Type (from Nrs): Peripheral IV Assessment/Plan Chief Complaint/Hosp Course 76-year-old female presenting with s left-sided facial swelling, pain, and fevers who apparently had a dental visit last week and was told that she had a dental infection. 1.Left facial cellulitis with underlying recent tooth abscess-failed outpatient therapy. Initial CT with suggestion of hematoma/abscess. A follow-up soft tissue ultrasound on 11/29/2016 without any evidence of hematoma or abscess. Resolving. -ID evaluation appreciated. Continue steroids (will change to Decadron IV), broad-spectrum antibiotics and follow-up cultures and 2D echocardiogram. -I spoke with , and per him, there is no abscess to be drained at this time therefore, she does not need any inpatient ENT workup. Patient can be discharged on clindamycin and Medrol-dose pack with outpatient dental follow -up. -Foremost priority is to have patient follow-up with her dentist after discharge for infected tooth extraction (Left lower molar) after she received appropriate antibiotics as soon as possible 2. Sepsis,present on admission secondary to #1. Resolving. Ofnote, patient now on steroids,therefore WBC counts does not actually reflect the severity of sepsis. -Treatment as above.F/u final cultures-So far negative. 3.Positive urinalysis, suggestive of urinary tract infection. -Unable to add urine culture to the admission specimen. Please note that patient received abxx3 days prior to current culture specimen and this can yield a negative culture at this time. -Empirically treat with abx for UTI. 4.Poorly controlled Type 2 diabetes with uncontrolled hyperglycemia 2/2 to steroids +DM. Now with stable glycemic status. A1C 11.0 -Endo eval greatly appreciated. On Accu-Cheks/moderate sliding scale/Lantus 15 units/pre-meal aspart 5 units TID/NPH with Decadron Q6H. -DM education 5. Iron deficiency anemia. -Stable H&H. Monitor. -On Iron replacement and Recommend further anemia work-up with PCP as outpt. Plan: Continue current medical management. She will be continued on broad- spectrum antibiotics and steroids to aid in swelling. Disp: I spoke with , and per him, there is no abscess to be drained at this time therefore, she does not need any inpatient ENT workup. Position: Consider discharge planning soon on clindamycin and Medrol dose pack and dentist follow-up if okay with ID and until standpoint. We will also request diabetic education prior to discharge as she would benefit from getting a glucometer, and insulin instructions. Patient was seen in collaboration with . Problems: Subjective 24 Hr Interval Summary Free Text/Dictation Patient with excellent progress in left facial cellulitis. There is minimal to no swelling at this time. There is no drainage. Patient is tolerating diet and activities. Exam/Review of Systems Vital Signs Vitals Vital Signs Date Time Temp Pulse Resp B/P Pulse Ox O2 Delivery O2 Flow Rate FiO2 12/02/16 07:26 97.9 57 18 142/71 96 11/29/16 03:18 Room Air Intake and Output 12/01/16 12/01/16 12/02/16 15:00 23:00 07:00 Intake Total 550 ml 480 ml 1650 ml Balance 550 ml 480 ml 1650 ml Exam General: Well developed,adequately built, not in any acute distress . HEENT: Left-sided facial swelling with redness and tenderness-resolving. Normocephalic, Atraumatic, No laceration or hematoma; Eyes: PEERL, Conjunctiva clear, Anicteric sclera Neck: Supple without any lymphadenopathy, nontender, no JVD, no carotid bruits, trachea midline, no thyromegaly Cardiac: S1, S2 auscultated, regular rhythm and rate, no mumurs or gallop Pulmonary: Normal respiratory effort. Chest clear to auscultation bilaterally, no adventitious breath sounds GI: Abdomen normal to inspection. Soft, non tender, non- distended, no masses, no rebound tenderness or guarding. Bowel sounds active on all four quadrants Genitourinary: Deferred Extremities: No cyanosis, clubbing, or edema. Pulses [2+] bilaterally. Full ROM on all four extremities. No focal weakness appreciated. Neurologic: Alert to person, place, time, and situation. Affect appropriate, intact sensation. Skin: Clean,dry, and intact. No ecchymosis, no rashes, or lesions Results Result Diagram: 10/18/17 0517 10/18/17 0517 Results 24 hrs Laboratory Tests Test 12/01/16 12:15 12/01/16 17:41 12/01/16 21:25 12/02/16 00:45 Bedside Glucose 183 112 125 66 L Test 12/02/16 00:46 12/02/16 02:55 12/02/16 05:17 12/02/16 06:04 Vancomycin Level Trough 5.9 L Bedside Glucose 78 86 White Blood Count 10.8 # Red Blood Count 3.31 L Hemoglobin 9.4 L Hematocrit 28.8 L Mean Corpuscular Volume 87.0 Mean Corpuscular Hemoglobin 28.4 L Mean Corpuscular Hemoglobin Concent 32.6 Red Cell Distribution Width 13.0 Platelet Count 282 Mean Platelet Volume 11.0 H Neutrophils % 70.0 Lymphocytes % 18.7 Monocytes % 9.6 Eosinophils % 0.1 Basophils % 0.1 Nucleated Red Blood Cells % 0.0 Neutrophils # 7.6 H Lymphocytes # 2.0 Monocytes # 1.0 H Eosinophils # 0.0 Basophils # 0.0 Nucleated Red Blood Cells # 0.0 Sodium Level 144 Potassium Level 3.9 Chloride Level 110 Carbon Dioxide Level 26 Anion Gap 12 Blood Urea Nitrogen 29 #H Creatinine 0.90 Glucose Level 79 # Calcium Level 8.0 L Test 12/02/16 07:53 Bedside Glucose 103 Medications Medications Current Medications Diagnostic Test (Pha) (Accu-Chek) 1 ea 02 XX Last administered on 11/30/16t 02 :12; Admin Dose 1 EA; Start 11/30/16 at 02:00 Miscellaneous Information 1 ea NOTE XX ; Start 11/29/16 at 04:30 Glucose (Glutose) 15 gm Q15M PRN PO DECREASED GLUCOSE; Start 11/29/16 at 04:30 Glucose (Glutose) 22.5 gm Q15M PRN PO DECREASED GLUCOSE; Start 11/29/16 at 04: 30 Dextrose (D50w Syringe) 25 ml Q15M PRN IV DECREASED GLUCOSE; Start 11/29/16 at 04:30 Dextrose (D50w Syringe) 50 ml Q15M PRN IV DECREASED GLUCOSE; Start 11/29/16 at 04:30 Glucagon (Glucagen) 1 mg Q15M PRN IM DECREASED GLUCOSE; Start 11/29/16 at 04: 30 Glucose 15 gm 15 gm Q15M PRN BUCCAL DECREASED GLUCOSE; Start 11/29/16 at 04:30 Piperacillin Sod/ Tazobactam Sod (Zosyn 2.25gm/ 50ml (Pmx)) 50 ml @ 200 mls/hr Q6 IVPB Last administered on 12/02/16 06:02; Admin Dose 200 MLS/HR; Start at 06:00 Insulin Glargine 15 unit 15 unit DAILY@08 SC Last administered on 12/02/16 08 :38; Admin Dose 15 UNIT; Start 11/29/16 at 08:00 Sodium Chloride (NS) 1,000 ml @ 80 mls/hr [id number] IV Last administered on 02:53; Admin Dose 80 MLS/HR; Start 11/29/16 at 10:30 Morphine Sulfate (morphine) 2 mg Q4H PRN IV PAIN Last administered on 01:07; Admin Dose 2 MG; Start 11/30/16 at 00:45 Dexamethasone 1 mg 1 mg Q6 IV Last administered on 12/02/16 06:24; Admin Dose 1 MG; Start 11/30/16 at 12:00 Ferric Sodium Gluconate Complex/ Sodium Chloride (Ferrlecit/NS) 110 ml @ 100 mls/hr Q24H IVPB Last administered on 12/01/16 14:36; Admin Dose 100 MLS/HR; Start 11/30/16 at 14:00; Stop 12/02/16 at 15:05 Ferrous Sulfate (Ferrous Sulfate (Ec)) 325 mg BID PO ; Start 12/03/16 at 09:00 Docusate Sodium (Colace) 100 mg BID PO Last administered on 12/02/16 08:16; Admin Dose 100 MG; Start 11/30/16 at 21:00 Insulin Human NPH (Humulin N) 6 unit Q6 SC Last administered on 12/01/16 17: 54; Admin Dose 6 UNIT; Start 11/30/16 at 18:00 Acetaminophen/ Hydrocodone Bitart ([place] (5/325)) 1 tab Q4H PRN PO PAIN Last administered on 11/30/16 23:31; Admin Dose 1 TAB; Start 11/30/16 at 23:00 Acetaminophen/ Hydrocodone Bitart ([place] (10/325)) 1 tab Q4H PRN PO PAIN Last administered on 12/01/16 21:35; Admin Dose 1 TAB; Start 11/30/16 at 23:00 Polyethylene Glycol 17 gm 17 gm DAILY PO Last administered on 12/02/16 08:16 ; Admin Dose 17 GM; Start 12/02/16 at 09:00 Vancomycin HCl/ Sodium Chloride (Vancocin/NS) 150 ml @ 75 mls/hr Q12H IVPB ; Start 12/02/16 at 16:00 JASON AMADOR NP Dec 02, 2016 10:31
[2016-12-02] MEDS ORDERED: Glucometer (10:33)
--- NOTE | 2016-12-02 12:44 | CONS ---
Date/Time of Note Date/Time of Note DATE: 12/02/16 TIME: 12:40 Assessment/Plan Assessment/Plan Chief Complaint/Hosp Course 76-year-old female previously in reasonable health. She developed what was described as a dental abscess which was advancing despite antibiotics specifically Omnicef. She presents to the emergency room where she was initially labeled as sepsis due to urinary tract infection. However the patient was then reviewed by 1 of the emergency room physicians who felt she had a facial cellulitis but did not meet criteria for formally labeled as sepsis. She was admitted to the floor where she has been treated with aggressive steroid therapy for edema. Sugars which were not under adequate control of admission are now significantly worse. Problems: (1) Parotiditis Status: Acute Comment: I am not certain that I am all that impressed at how much this is improved. However if the ear nose and throat consult and feels this patient has improved and can go home I will of course defer off. (2) Iron deficiency anemia Status: Chronic Comment: Completing IV replacement Qualifiers: Iron deficiency anemia type: unspecified iron deficiency Qualified Code: D50.9 - Iron deficiency anemia, unspecified iron deficiency anemia type (3) Dental abscess Status: Acute Comment: As per ENT consult and recommendations on this patient's dentist (4) Diabetes mellitus out of control Status: Chronic Comment: Patient has had very tight control to the point them acting in a back off on the NPH. Please note the NPH is covering for the dexamethasone. When the dexamethasone stops the NPH must be stopped and she should not go home on this. She should go home on Lantus insulin (which can be substituted for Basaglar or Tresiba or Toujeo based on insurance company requirements) on the current dosages. In the meantime she should also stay on the mealtime insulins and she can resume her DPP for drug at discharge. If she is discharged home with a Medrol Dosepak I would not add any extra medicines to cover this since this is a rapidly declining dosage of steroids and were more likely to cause a problem and help Qualifiers: Diabetes mellitus type: type 2 Diabetes mellitus complication status: without complication Diabetes mellitus usp insulin use: without usp use Qualified Code: E11.65 - Uncontrolled type 2 diabetes mellitus without complication, without long-term current use of insulin Consultation Date/Type/Reason Admit Date/Time Nov 29, 2016 at 08:40 Initial Consult Date 11/30/16 Type of Consultation: Endocrinology Reason for Consultation Diabetes mellitus type 2 with inadequate control as an outpatient with a facial cellulitis and parotiditis. Referring Provider: JASON AMADOR NP 24 HR Interval Summary Free Text/Dictation Patient reports she still has pain and tenderness and swelling on the left side of the cheek but otherwise has done well. Constitutional: no complaints Exam/Review of Systems Vital Signs Vitals Vital Signs Date Time Temp Pulse Resp B/P Pulse Ox O2 Delivery O2 Flow Rate FiO2 12/02/16 07:26 97.9 57 18 142/71 96 11/29/16 03:18 Room Air Intake and Output 12/01/16 12/01/16 12/02/16 15:00 23:00 07:00 Intake Total 550 ml 480 ml 1650 ml Balance 550 ml 480 ml 1650 ml Exam Constitutional: alert, oriented Eyes: EOMI, PERRL, nl conjunctiva, nl lids, nl sclera ENMT: mucosa pink and moist, nl external ears & nose, nl nasal mucosa & septum , other (Swelling remains largely the same and I am concerned this is not very much improved) Results Result Diagram: 12/02/1651612/02/1617 Results 24 hrs Laboratory Tests Test 12/01/16 17:41 12/01/16 21:25 12/02/16 00:45 12/02/16 00:46 Bedside Glucose 112 125 66 L Vancomycin Level Trough 5.9 L Test 12/02/16 02:55 12/02/16 05:17 12/02/16 06:04 12/02/16 07:53 Bedside Glucose 78 86 103 White Blood Count 10.8 # Red Blood Count 3.31 L Hemoglobin 9.4 L Hematocrit 28.8 L Mean Corpuscular Volume 87.0 Mean Corpuscular Hemoglobin 28.4 L Mean Corpuscular Hemoglobin Concent 32.6 Red Cell Distribution Width 13.0 Platelet Count 282 Mean Platelet Volume 11.0 H Neutrophils % 70.0 Lymphocytes % 18.7 Monocytes % 9.6 Eosinophils % 0.1 Basophils % 0.1 Nucleated Red Blood Cells % 0.0 Neutrophils # 7.6 H Lymphocytes # 2.0 Monocytes # 1.0 H Eosinophils # 0.0 Basophils # 0.0 Nucleated Red Blood Cells # 0.0 Sodium Level 144 Potassium Level 3.9 Chloride Level 110 Carbon Dioxide Level 26 Anion Gap 12 Blood Urea Nitrogen 29 #H Creatinine 0.90 Glucose Level 79 # Calcium Level 8.0 L Test 12/02/16 12:02 Bedside Glucose 213 Medications Medications Current Medications Diagnostic Test (Pha) (Accu-Chek) 1 ea 02 XX Last administered on 11/30/16 02 :12; Admin Dose 1 EA; Start 11/30/16 at 02:00 Miscellaneous Information 1 ea NOTE XX ; Start 11/29/16 at 04:30 Glucose (Glutose) 15 gm Q15M PRN PO DECREASED GLUCOSE; Start 11/29/16 at 04:30 Glucose (Glutose) 22.5 gm Q15M PRN PO DECREASED GLUCOSE; Start 11/29/16 at 04: 30 Dextrose (D50w Syringe) 25 ml Q15M PRN IV DECREASED GLUCOSE; Start 11/29/16 at 04:30 Dextrose (D50w Syringe) 50 ml Q15M PRN IV DECREASED GLUCOSE; Start 11/29/16 at 04:30 Glucagon (Glucagen) 1 mg Q15M PRN IM DECREASED GLUCOSE; Start 11/29/16 at 04: 30 Glucose 15 gm 15 gm Q15M PRN BUCCAL DECREASED GLUCOSE; Start 11/29/16 at 04:30 Piperacillin Sod/ Tazobactam Sod (Zosyn 2.25gm/ 50ml (Pmx)) 50 ml @ 200 mls/hr Q6 IVPB Last administered on 12/02/16 12:16; Admin Dose 200 MLS/HR; Start at 06:00 Insulin Glargine 15 unit 15 unit DAILY@08 SC Last administered on 12/02/16 08 :38; Admin Dose 15 UNIT; Start 11/29/16 at 08:00 Sodium Chloride (NS) 1,000 ml @ 80 mls/hr [id number] IV Last administered on 02:53; Admin Dose 80 MLS/HR; Start 11/29/16 at 10:30 Morphine Sulfate 2 mg 2 mg Q4H PRN IV PAIN Last administered on 11/30/16 01: 07; Admin Dose 2 MG; Start 11/30/16 at 00:45 Ferric Sodium Gluconate Complex/ Sodium Chloride (Ferrlecit/NS) 110 ml @ 100 mls/hr Q24H IVPB Last administered on 12/01/16 14:36; Admin Dose 100 MLS/HR; Start 11/30/16 at 14:00; Stop 12/02/16 at 15:05 Ferrous Sulfate (Ferrous Sulfate (Ec)) 325 mg BID PO ; Start 12/03/16 at 09:00 Docusate Sodium (Colace) 100 mg BID PO Last administered on 12/02/16 08:16; Admin Dose 100 MG; Start 11/30/16 at 21:00 Acetaminophen/ Hydrocodone Bitart ([place] (5/325)) 1 tab Q4H PRN PO PAIN Last administered on 11/30/16 23:31; Admin Dose 1 TAB; Start 11/30/16 at 23:00 Acetaminophen/ Hydrocodone Bitart ([place] (10/325)) 1 tab Q4H PRN PO PAIN Last administered on 12/01/16 21:35; Admin Dose 1 TAB; Start 11/30/16 at 23:00 Polyethylene Glycol 17 gm 17 gm DAILY PO Last administered on 12/02/16 08:16 ; Admin Dose 17 GM; Start 12/02/16 at 09:00 Vancomycin HCl/ Sodium Chloride (Vancocin/NS) 150 ml @ 75 mls/hr Q12H IVPB ; Start 12/02/16 at 16:00 Dexamethasone (Decadron) 4 mg Q6 IV ; Start 12/02/16 at 18:00; Status UNV Insulin Human NPH (Humulin N) 4 unit Q6 SC ; Start 12/02/16 at 18:00; Status UNV ESTELA MARTIN MD Dec 02, 2016 12:43
--- NOTE | 2016-12-02 12:49 | CONS ---
Date/Time of Note Date/Time of Note DATE: 12/02/16 TIME: 12:47 Consult Date/Type/Reason Admit Date/Time Nov 29, 2016 at 08:40 Initial Consult Date 11/30/16 Type of Consultation: id Ordering Provider: JASON AMADOR NP Objective Vital Signs Date Time Temp Pulse Resp B/P Pulse Ox O2 Delivery O2 Flow Rate FiO2 12/02/16 07:26 97.9 57 18 142/71 96 11/29/16 03:18 Room Air Intake and Output 12/01/16 12/01/16 12/02/16 15:00 23:00 07:00 Intake Total 550 ml 480 ml 1650 ml Balance 550 ml 480 ml 1650 ml Results/Medications Result Diagram: 12/02/1651612/02/16516 Results 24 hrs Laboratory Tests Test 12/01/16 17:41 12/01/16 21:25 12/02/16 00:45 12/02/16 00:46 Bedside Glucose 112 125 66 L Vancomycin Level Trough 5.9 L Test 12/02/16 02:55 12/02/16 05:17 12/02/16 06:04 12/02/16 07:53 Bedside Glucose 78 86 103 White Blood Count 10.8 # Red Blood Count 3.31 L Hemoglobin 9.4 L Hematocrit 28.8 L Mean Corpuscular Volume 87.0 Mean Corpuscular Hemoglobin 28.4 L Mean Corpuscular Hemoglobin Concent 32.6 Red Cell Distribution Width 13.0 Platelet Count 282 Mean Platelet Volume 11.0 H Neutrophils % 70.0 Lymphocytes % 18.7 Monocytes % 9.6 Eosinophils % 0.1 Basophils % 0.1 Nucleated Red Blood Cells % 0.0 Neutrophils # 7.6 H Lymphocytes # 2.0 Monocytes # 1.0 H Eosinophils # 0.0 Basophils # 0.0 Nucleated Red Blood Cells # 0.0 Sodium Level 144 Potassium Level 3.9 Chloride Level 110 Carbon Dioxide Level 26 Anion Gap 12 Blood Urea Nitrogen 29 #H Creatinine 0.90 Glucose Level 79 # Calcium Level 8.0 L Test 12/02/16 12:02 Bedside Glucose 213 Medications Current Medications Diagnostic Test (Pha) (Accu-Chek) 1 ea 02 XX Last administered on 11/30/16t 02 :12; Admin Dose 1 EA; Start 11/30/16 at 02:00 Miscellaneous Information 1 ea NOTE XX ; Start 11/29/16 at 04:30 Glucose (Glutose) 15 gm Q15M PRN PO DECREASED GLUCOSE; Start 11/29/16 at 04:30 Glucose (Glutose) 22.5 gm Q15M PRN PO DECREASED GLUCOSE; Start 11/29/16 at 04: 30 Dextrose (D50w Syringe) 25 ml Q15M PRN IV DECREASED GLUCOSE; Start 11/29/16 at 04:30 Dextrose (D50w Syringe) 50 ml Q15M PRN IV DECREASED GLUCOSE; Start 11/29/16 at 04:30 Glucagon (Glucagen) 1 mg Q15M PRN IM DECREASED GLUCOSE; Start 11/29/16 at 04: 30 Glucose 15 gm 15 gm Q15M PRN BUCCAL DECREASED GLUCOSE; Start 11/29/16 at 04:30 Piperacillin Sod/ Tazobactam Sod (Zosyn 2.25gm/ 50ml (Pmx)) 50 ml @ 200 mls/hr Q6 IVPB Last administered on 12/02/16 12:16; Admin Dose 200 MLS/HR; Start at 06:00 Insulin Glargine 15 unit 15 unit DAILY@08 SC Last administered on 12/02/16 08 :38; Admin Dose 15 UNIT; Start 11/29/16 at 08:00 Sodium Chloride (NS) 1,000 ml @ 80 mls/hr [id number] IV Last administered on 02:53; Admin Dose 80 MLS/HR; Start 11/29/16 at 10:30 Morphine Sulfate 2 mg 2 mg Q4H PRN IV PAIN Last administered on 11/30/16 01: 07; Admin Dose 2 MG; Start 11/30/16 at 00:45 Ferric Sodium Gluconate Complex/ Sodium Chloride (Ferrlecit/NS) 110 ml @ 100 mls/hr Q24H IVPB Last administered on 12/01/16 14:36; Admin Dose 100 MLS/HR; Start 11/30/16 at 14:00; Stop 12/02/16 at 15:05 Ferrous Sulfate (Ferrous Sulfate (Ec)) 325 mg BID PO ; Start 12/03/16 at 09:00 Docusate Sodium (Colace) 100 mg BID PO Last administered on 12/02/16 08:16; Admin Dose 100 MG; Start 11/30/16 at 21:00 Acetaminophen/ Hydrocodone Bitart ([place] (5/325)) 1 tab Q4H PRN PO PAIN Last administered on 11/30/16 23:31; Admin Dose 1 TAB; Start 11/30/16 at 23:00 Acetaminophen/ Hydrocodone Bitart ([place] (10/325)) 1 tab Q4H PRN PO PAIN Last administered on 12/01/16 21:35; Admin Dose 1 TAB; Start 11/30/16 at 23:00 Polyethylene Glycol 17 gm 17 gm DAILY PO Last administered on 12/02/16 08:16 ; Admin Dose 17 GM; Start 12/02/16 at 09:00 Vancomycin HCl/ Sodium Chloride (Vancocin/NS) 150 ml @ 75 mls/hr Q12H IVPB ; Start 12/02/16 at 16:00 Dexamethasone (Decadron) 4 mg Q6 IV ; Start 12/02/16 at 18:00 Insulin Human NPH (Humulin N) 4 unit Q6 SC ; Start 12/02/16 at 18:00 Assessment/Plan Chief Complaint/Hosp Course SUBJECTIVE: Patient is awake, feels better, looks comfortable, no fevers. MICROBIOLOGY: Blood cultures have been negative. DIAGNOSTICS: CT of the face revealed a large left masseter muscle with poorly defined area of low attenuation suggestive of underlying hematoma or abscess. Left parotid gland is also mildly edematous. Chest x-ray on admission revealed no evidence of active cardiopulmonary disease. ANTIMICROBIALS: Vancomycin and Zosyn. ALLERGIES: NONE. PHYSICAL EXAMINATION: GENERAL: Well-developed, elderly woman who is alert, in no distress. HEENT: Head atraumatic, normocephalic. Sclerae anicteric. Buccal mucosa dry. NECK: Supple. CHEST: Rise symmetrical. Breath sounds clear. HEART: S1, S2. ABDOMEN: Soft, bowel sounds present. EXTREMITIES: No cyanosis. SKIN: Facial swelling on the left is much better ASSESSMENT: 1. Left facial cellulitis, possible abscess as per CT of the facial bones. Questionable parotitis. US revealed no abscess 2. Poorly controlled diabetes. 3. Sepsis on admission, now with persistent leukocytosis secondary to steroids. PLAN: The patient remains stable. Continue present care, anticipate dc on oral Clindamycin if ok with ENT and f/u with ENT outpatient, no rec-s for surgical procedure per ENT/primary note. [facility] staff Problems: EVE PIZARRO NP Dec 02, 2016 12:49
[2016-12-02] MEDS: SOD FERRIC GLUC COMPLX 125 MG in SOD CHLORIDE 0.9% 100 ML IVPB SCH (14:15)
[2016-12-02] MEDS ORDERED: FER325 PO (14:41)
[2016-12-02 14:45] VITALS: BP 135/64; RESP 16
--- NOTE | 2016-12-02 14:47 | DS ---
Date/Time of Note Date/Time of Note DATE: 12/02/16 TIME: 14:39 Discharge Summary Admission/Discharge Info Admit Date/Time Nov 29, 2016 at 08:40 Discharge Date/Time Discharge Diagnosis 1.Left facial cellulitis with underlying recent tooth abscess-failed outpatient therapy. Resolving.On antibiotics. Recommended outpatient dental and ENT follow -up. 2.Status post Sepsis,present on admission secondary to #1 with presumptive UTI. 3.Presumptive UTI. Treated. 4.Poorly controlled Type 2 diabetes 5. Iron deficiency anemia. Patient Condition: Stable Consults ,ID ,Endocrinology ,ENT (Remote consult with phone discussion) Procedures 11/28/2016. Face CT. IMPRESSION: Enlarged left masseter muscle with poorly defined areas of low attenuation suggestive of underlying hematoma or abscess. There is overlying left facial soft tissue swelling with subcutaneous stranding. The left parotid gland is also mildly edematous. Vascular calcifications reflective of atherosclerosis. 11/29/2016. Soft tissue ultrasound left face. Left facial swelling without sonographic evidence of hematoma or abscess. Hospital Course This is a 76-year-old female with a past medical history of type 2 diabetes, anemia, who presented to the emergency room for evaluation of left facial swelling with pain and redness. According to the patient, she had a recent dental abscess and was on antibiotics with Omnicef as outpatient. However, patient did not feel any improvement in her symptoms got worse and she came up for further evaluation. The patient was arrived, she was found to be in sepsis with a WBC of 20,800, temperature 99.5 with documented left facial cellulitis. Patient had Face which was questionable for hematoma versus abscess on left masseter muscle. ID consult was called. Patient was continued on appropriate IV antibiotic regimen. She did not have any oral drainage. She was able to tolerate diet. There was no airway compromise. Her blood cultures came back negative and urine culture also was negative. Patient was responding very well to the antibiotic regimen. Her facial swelling was resolving. Patient was also noted with uncontrolled diabetes with A1c 11. She also had elevated blood sugar which also got worse while she was receiving steroids to relieve swelling. Therefore, she was also evaluated by endocrinology and was placed on appropriate insulin regimen while patient was receiving Decadron IV therapy. Blood sugar remained stable thereafter. There was a discussion whether to call ENT evaluation or not. Therefore, I spoke with Dr. Lentz, who is also ENT specialist and discussed patient's condition over the phone. A soft tissue ultrasound did not reveal any presence of abscess. Imaging studies findings also reported. According to expert opinion, there is no indication for inpatient ENT evaluation as there is no evidence of abscess or anything to be drained at this time. The recommendation was to continue patient on oral clindamycin and Medrol Dosepak and discharged patient home with outpatient dentist follow-up. This was concurred with ID colleagues as well as endocrinology colleagues. Patient also had diabetic education and she was provided with glucometer upon discharge. She was also given insulin instructions.Patient was also noted with iron deficiency anemia for which she received IV iron followed by oral iron replacement with stable H&H. Patient feels almost resolve mending her symptoms. There is a mild swelling on her left face without any erythema or pain at this time. She is stable for outpatient follow-up. Disposition: Patient will be discharged home. She is instructed to follow-up with outpatient dentist and ENT in 1 week. Foremost priority is to have dental evaluation for her tooth abscess. Patient and family verbalized discharge instructions. Patient was provided with prescriptions for newly added medication as well as insulin. Approximately 60 minutes was spent in coordinating the discharge on this patient. Patient was seen in collaboration with . Home Meds Active Scripts Clindamycin Hcl* (Clindamycin Hcl*) 300 Mg Capsule, 300 MG PO Q6 for 7 Days, #7 CAP Prov:AMADOR,JASON V. AGRICULTURAL PRODUCTION ENGINEER 12/02/16 [Glucometer] No Conflict Check, 1, #1 BOX Blood glucose monitoring 3 times a day. Prov:AMADOROZIELJASON V. AGRICULTURAL PRODUCTION ENGINEER 12/02/16 Famotidine* (Pepcid*) 20 Mg Tablet, 20 MG PO BID, #60 TAB Prov:AMADOR,JASON V. AGRICULTURAL PRODUCTION ENGINEER 12/02/16 Methylprednisolone* (Medrol* DOSE PACK) 4 Mg/Dose-Pack Tab.ds.pk, 4 MG PO . DIRECTED, #1 PACKET Prov:AMADOROZIELJASON V. AGRICULTURAL PRODUCTION ENGINEER 12/02/16 Insulin Aspart* (Novolog Insulin Pen*) 100 Unit/Ml Soln, 5 UNIT SC WITH MEALS, # 1 SYR Please provide patient with insulin pen as she cannot draw insulin from syringe and she also cannot read. Prov:AMADORJASON V. AGRICULTURAL PRODUCTION ENGINEER 12/02/16 Insulin Glargine* (Lantus*) 100 Unit/Ml Soln, 15 UNIT SC DAILY@08, #1 SYR Okay to substitute based on insurance. However, please provide patient with insulin pen. Provide patient with 30 day supplies of insulin syringes, needles, and lancets for blood glucose monitoring 3 times a day. Prov:JASON AMADOR NP 12/02/16 Reported Medications Sitagliptin Phos-Metformin Hcl (Janumet) 1 Tab Tablet 02/11/10 Follow-up Plan 1.Follow up with primary care physician in 1 week If you don't have one please let someone know, we can give you resources that may help you pick one. You may also call your insurance company to assign one to you. Review your medication list with your nurse before leaving and if you need new prescriptions please let your nurse know. I may have made changes to your home medications or given you new prescriptions, please let your primary doctor know as well. Stay compliant with your medications and report any side effects to your PCP or pharmacist. Return to the ER if you have any concerns and cannot reach your doctors or call your insurance company, they usually have a nurse that can help you. 2. Call 911 or go to the nearest emergency room if experiencing loss of consciousness, dizziness, chest pain, shortness of breath, vomiting/abdominal pain, speech difficulties, motor weakness or any unusual symptoms. Other orders: Follow-up with dentist as soon as possible. Also recommend outpatient ENT Follow-up Primary Care Provider Elana So Pending Labs Laboratory Tests Test 12/01/16 17:41 12/01/16 21:25 12/02/16 00:45 12/02/16 00:46 Bedside Glucose 112mg/dL (70-220) 125mg/dL (70-220) 66mg/dL (70-220) Vancomycin Level Trough 5.9ug/ml (10.0-20.0) Test 12/02/16 02:55 12/02/16 05:17 12/02/16 06:04 12/02/16 07:53 Bedside Glucose 78mg/dL (70-220) 86mg/dL (70-220) 103mg/dL (70-220) White Blood Count 10.810^3/ul (4.8-10.8) Red Blood Count 3.3110^6/ul (4.20-5.40) Hemoglobin 9.4g/dl (12.0-16.0) Hematocrit 28.8% (37.0-47.0) Mean Corpuscular Volume 87.0fl (82.0-101.0) Mean Corpuscular Hemoglobin 28.4pg (29.0-33.0) Mean Corpuscular Hemoglobin Concent 32.6g/dl (32.0-37.0) Red Cell Distribution Width 13.0% (11.5-14.5) Platelet Count 31574^3/UL (140-415) Mean Platelet Volume 11.0fl (7.4-10.4) Neutrophils % 70.0% (39.0-77.0) Lymphocytes % 18.7% (15.0-51.0) Monocytes % 9.6% (0.0-11.0) Eosinophils % 0.1% (0.0-7.0) Basophils % 0.1% (0.0-2.0) Nucleated Red Blood Cells % 0.0/100WBC (0.0-0.0) Neutrophils # 7.610^3/ul (1.6-7.5) Lymphocytes # 2.010^3/ul (0.8-2.9) Monocytes # 1.010^3/ul (0.3-0.9) Eosinophils # 0.010^3/ul (0.0-0.5) Basophils # 0.010^3/ul (0.0-0.1) Nucleated Red Blood Cells # 0.010^3/ul (0.0-0.0) Sodium Level 144mmol/L (135-144) Potassium Level 3.9mmol/L (3.5-5.1) Chloride Level 110mmol/L (97-110) Carbon Dioxide Level 26mmol/L (21-31) Anion Gap 12 (8-16) Blood Urea Nitrogen 29mg/dl (7-20) Creatinine 0.90mg/dl (0.44-1.00) Glucose Level 79mg/dl (70-220) Calcium Level 8.0mg/dl (8.4-10.2) Test 12/02/16 12:02 Bedside Glucose 213mg/dL (70-220) AMADOR,JASON V. AGRICULTURAL PRODUCTION ENGINEER Dec 02, 2016 14:47
[2016-12-02] MEDS: HYDROCODONE/APAP (10/325) TAB PO PRN (15:01)
[2016-12-02] MEDS: VANCOMYCIN 750 MG in SOD CHLORIDE 0.9% 150 ML IVPB SCH (17:28)
[2016-12-02 19:33] VITALS: BP 153/68; RESP 20
[2016-12-03 01:51] VITALS: BP 122/65; RESP 20
[2016-12-03] MEDS: ACCU-CHEK XX SCH (02:00)
[2016-12-03] MEDS: SOD CHLORIDE 0.9% 1,000 ML IV SCH (02:05)
[2016-12-03] MEDS: PIPER-TAZO 2.25 GM (PMX) 50 ML IVPB SCH ×3 (02:06→12:08)
[2016-12-03] MEDS: VANCOMYCIN 750 MG in SOD CHLORIDE 0.9% 150 ML IVPB SCH (03:39)
[2016-12-03] MEDS: DEXAMETHASONE 4 MG/ML 1 ML INJ IV SCH ×2 (05:58→12:08)
[2016-12-03] MEDS: NPH, HUMAN INSULIN ISOPHANE 3ML VIAL SC SCH ×2 (06:06→12:23)
[2016-12-03 06:32] LABS: ABNORMAL IP MESSAGE 1; BASOPHILS % 0.2 % (0.0-2.0); HEMATOCRIT 32.4 % (37.0-47.0); HEMOGLOBIN 10.3 g/dl (12.0-16.0); LYMPHOCYTES # 1.6 10^3/ul (0.8-2.9); LYMPHOCYTES % 14.5 % (15.0-51.0); MEAN CORPUSCULAR HEMOGLOBIN 27.4 pg (29.0-33.0); MEAN CORPUSCULAR HGB CONC 31.8 g/dl (32.0-37.0); MEAN CORPUSCULAR VOLUME 86.2 fl (82.0-101.0); MEAN PLATELET VOLUME 11.4 fl (7.4-10.4); MONOCYTE # 0.6 10^3/ul (0.3-0.9); MONOCYTES % 4.9 % (0.0-11.0); NEUTROPHIL # 8.5 10^3/ul (1.6-7.5); NEUTROPHILS % 74.9 % (39.0-77.0); NUCLEATED RED BLOOD CELLS% 0.2 /100WBC (0.0-0.0); PLATELET COUNT 327 10^3/UL (140-415); RED BLOOD COUNT 3.76 10^6/ul (4.20-5.40); WHITE BLOOD COUNT 11.3 10^3/ul (4.8-10.8)
[2016-12-03 07:07] LABS: CALCIUM 8.6 mg/dl (8.4-10.2); CREATININE 0.77 mg/dl (0.44-1.00); POTASSIUM 4.2 mmol/L (3.5-5.1)
[2016-12-03 07:19] LABS: POSITIVE DIFF @See below
[2016-12-03 07:30] VITALS: BP 144/65; RESP 18
[2016-12-03] MEDS: DOCUSATE SODIUM 100 MG CAP PO SCH (08:13)
[2016-12-03] MEDS: POLYETHYLENE GLYCOL 17 GM PACKET PO SCH (08:13)
[2016-12-03] MEDS: INSULIN GLARGINE [LANtus] 3 ML PEN SC SCH (08:43)
[2016-12-03] MEDS: INSULIN ASPART [NOVOLOG] 3 ML PEN SC SCH ×4 (08:43→12:12)
[2016-12-03] MEDS ORDERED: FERROUS SULFATE (EC) 325 MG TAB PO SCH (09:00)
--- NOTE | 2016-12-03 13:19 | PN ---
Date/Time of Note Date/Time of Note DATE: 12/03/16 TIME: 13:17 Assessment/Plan VTE Prophylaxis VTE Prophylaxis Intervention: ambulation Lines/Catheters IV Catheter Type (from Nrsg): Peripheral IV Assessment/Plan Chief Complaint/Hosp Course 76-year-old female presenting with s left-sided facial swelling, pain, and fevers who apparently had a dental visit last week and was told that she had a dental infection. 1.Left facial cellulitis with underlying recent tooth abscess-failed outpatient therapy. Initial CT with suggestion of hematoma/abscess. A follow-up soft tissue ultrasound on 11/29/2016 without any evidence of hematoma or abscess. Resolving. -ID evaluation appreciated. Continue steroids, broad-spectrum antibiotics and follow-up cultures and 2D echocardiogram. -I spoke with , and per him, there is no abscess to be drained at this time therefore, she does not need any inpatient ENT workup. Patient can be discharged on clindamycin and Medrol-dose pack with outpatient dental follow -up. -Foremost priority is to have patient follow-up with her dentist after discharge for infected tooth extraction (Left lower molar) after she received appropriate antibiotics as soon as possible 2. Status post Sepsis,present on admission secondary to #1. Negative cultures. 3.Presumptive UTI based on UA-Cultures were not done until pt received 3 days abx. -Empirically treated with abx for UTI. 4.Poorly controlled Type 2 diabetes with uncontrolled hyperglycemia 2/2 to steroids +DM. Now with stable glycemic status. A1C 11.0 -Endo eval greatly appreciated. On Accu-Cheks/moderate sliding scale/Lantus 15 units/pre-meal aspart 5 units TID/NPH with Decadron Q6H. -DM education 5. Iron deficiency anemia. -Stable H&H. Monitor. -On Iron replacement and Recommend further anemia work-up with PCP as outpt. Plan: DC planning on clindamycin and Medrol dose pack and dentist follow-up if okay with ID and until standpoint. Recommend HH for safely eval and insulin administration. We will also request diabetic education prior to discharge as she would benefit from getting a glucometer, and insulin instructions. Patient was seen in collaboration with . Problems: Subjective 24 Hr Interval Summary Free Text/Dictation Overall doing well. Discharge held yesterday due to home health nurse arrangement for insulin administration. Exam/Review of Systems Vital Signs Vitals Vital Signs Date Time Temp Pulse Resp B/P Pulse Ox O2 Delivery O2 Flow Rate FiO2 12/03/16 07:30 97.3 54 18 144/65 97 Intake and Output 12/02/16 12/02/16 12/03/16 15:00 23:00 07:00 Intake Total 3460 ml 1630 ml Balance 3460 ml 1630 ml Exam General: Well developed,adequately built, not in any acute distress . HEENT: Left-sided facial swelling with redness and tenderness-resolving. Normocephalic, Atraumatic, No laceration or hematoma; Eyes: PEERL, Conjunctiva clear, Anicteric sclera Neck: Supple without any lymphadenopathy, nontender, no JVD, no carotid bruits, trachea midline, no thyromegaly Cardiac: S1, S2 auscultated, regular rhythm and rate, no mumurs or gallop Pulmonary: Normal respiratory effort. Chest clear to auscultation bilaterally, no adventitious breath sounds GI: Abdomen normal to inspection. Soft, non tender, non- distended, no masses, no rebound tenderness or guarding. Bowel sounds active on all four quadrants Genitourinary: Deferred Extremities: No cyanosis, clubbing, or edema. Pulses [2+] bilaterally. Full ROM on all four extremities. No focal weakness appreciated. Neurologic: Alert to person, place, time, and situation. Affect appropriate, intact sensation. Skin: Clean,dry, and intact. No ecchymosis, no rashes, or lesions Results Result Diagram: 12/03/16 0538 12/03/16 0538 Results 24 hrs Laboratory Tests Test 12/02/16 17:24 12/02/16 20:59 12/02/16 23:53 12/03/16 05:38 Bedside Glucose 156 160 106 White Blood Count 11.3 H Red Blood Count 3.76 L Hemoglobin 10.3 L Hematocrit 32.4 L Mean Corpuscular Volume 86.2 Mean Corpuscular Hemoglobin 27.4 L Mean Corpuscular Hemoglobin Concent 31.8 L Red Cell Distribution Width 13.0 Platelet Count 327 Mean Platelet Volume 11.4 H Neutrophils % 74.9 Lymphocytes % 14.5 L Monocytes % 4.9 Eosinophils % 0.0 Basophils % 0.2 Nucleated Red Blood Cells % 0.2 H Neutrophils # 8.5 H Lymphocytes # 1.6 Monocytes # 0.6 Eosinophils # 0.0 Basophils # 0.0 Nucleated Red Blood Cells # 0.0 Sodium Level 144 Potassium Level 4.2 Chloride Level 109 Carbon Dioxide Level 27 Anion Gap 12 Blood Urea Nitrogen 20 Creatinine 0.77 Glucose Level 154 Calcium Level 8.6 Test 12/03/16 06:01 12/03/16 08:02 12/03/16 12:04 Bedside Glucose 150 154 264 H Medications Medications Current Medications Diagnostic Test (Pha) (Accu-Chek) 1 ea 02 XX Last administered on 11/30/16 02 :12; Admin Dose 1 EA; Start 11/30/16 at 02:00 Miscellaneous Information 1 ea NOTE XX ; Start 11/29/16 at 04:30 Glucose (Glutose) 15 gm Q15M PRN PO DECREASED GLUCOSE; Start 11/29/16 at 04:30 Glucose (Glutose) 22.5 gm Q15M PRN PO DECREASED GLUCOSE; Start 11/29/16 at 04: 30 Dextrose (D50w Syringe) 25 ml Q15M PRN IV DECREASED GLUCOSE; Start 11/29/16 at 04:30 Dextrose (D50w Syringe) 50 ml Q15M PRN IV DECREASED GLUCOSE; Start 11/29/16 at 04:30 Glucagon (Glucagen) 1 mg Q15M PRN IM DECREASED GLUCOSE; Start 11/29/16 at 04: 30 Glucose 15 gm 15 gm Q15M PRN BUCCAL DECREASED GLUCOSE; Start 11/29/16 at 04:30 Piperacillin Sod/ Tazobactam Sod (Zosyn 2.25gm/ 50ml (Pmx)) 50 ml @ 200 mls/hr Q6 IVPB Last administered on 12/03/16 12:08; Admin Dose 200 MLS/HR; Start at 06:00 Insulin Glargine 15 unit 15 unit DAILY@08 SC Last administered on 12/03/16 08 :43; Admin Dose 15 UNIT; Start 11/29/16 at 08:00 Sodium Chloride (NS) 1,000 ml @ 80 mls/hr [id number] IV Last administered on 02:05; Admin Dose 80 MLS/HR; Start 11/29/16 at 10:30 Morphine Sulfate (morphine) 2 mg Q4H PRN IV PAIN Last administered on 01:07; Admin Dose 2 MG; Start 11/30/16 at 00:45 Ferrous Sulfate (Ferrous Sulfate (Ec)) 325 mg BID PO Last administered on 12/03 08:13; Admin Dose 325 MG; Start 12/03/16 at 09:00 Docusate Sodium (Colace) 100 mg BID PO Last administered on 12/03/16 08:13; Admin Dose 100 MG; Start 11/30/16 at 21:00 Acetaminophen/ Hydrocodone Bitart (Alliance (5/325)) 1 tab Q4H PRN PO PAIN Last administered on 11/30/16 23:31; Admin Dose 1 TAB; Start 11/30/16 at 23:00 Acetaminophen/ Hydrocodone Bitart (Alliance (10/325)) 1 tab Q4H PRN PO PAIN Last administered on 12/02/16 15:01; Admin Dose 1 TAB; Start 11/30/16 at 23:00 Polyethylene Glycol 17 gm 17 gm DAILY PO Last administered on 12/03/16 08:13 ; Admin Dose 17 GM; Start 12/02/16 at 09:00 Vancomycin HCl/ Sodium Chloride (Vancocin/NS) 150 ml @ 75 mls/hr Q12H IVPB Last administered on 12/03/16 03:39; Admin Dose 75 MLS/HR; Start 12/02/16 at 16:00 Dexamethasone (Decadron) 4 mg Q6 IV Last administered on 12/03/16 12:08; Admin Dose 4 MG; Start 12/02/16 at 18:00 Insulin Human NPH (Humulin N) 4 unit Q6 SC Last administered on 12/03/16 12: 23; Admin Dose 4 UNIT; Start 12/02/16 at 18:00 Miscellaneous Information (*Rx Drug Level Order Reminder*) VANCOMYCIN TROUGH ON 11/16... ONCE ONCE XX ; Start 12/04/16 at 03:00; Stop 12/04/16 at 03:01 JASON AMADOR NP Dec 03, 2016 13:19 Miscellaneous Information (*Rx Drug Level Order Reminder*) VANCOMYCIN TROUGH ON 11/16... ONCE ONCE XX ; Start 12/04/16 at 03:00; Stop 12/04/16 at 03:01 JASON AMADOR NP Dec 03, 2016 13:19
--- NOTE | 2016-12-03 13:28 | DS ---
Date/Time of Note Date/Time of Note DATE: 12/03/16 TIME: 13:25 Discharge Summary Admission/Discharge Info Admit Date/Time Nov 29, 2016 at 08:40 Discharge Date/Time Discharge Diagnosis 1.Left facial cellulitis with underlying recent tooth abscess-failed outpatient therapy. Resolving.On antibiotics. Recommended outpatient dental and ENT follow -up. 2.Status post Sepsis,present on admission secondary to #1 with presumptive UTI. 3.Presumptive UTI. Treated. 4.Poorly controlled Type 2 diabetes 5. Iron deficiency anemia. Patient Condition: Stable Consults ,ID ,Endocrinology ,ENT (Remote consult with phone discussion) Procedures 11/28/2016. Face CT. IMPRESSION: Enlarged left masseter muscle with poorly defined areas of low attenuation suggestive of underlying hematoma or abscess. There is overlying left facial soft tissue swelling with subcutaneous stranding. The left parotid gland is also mildly edematous. Vascular calcifications reflective of atherosclerosis. 11/29/2016. Soft tissue ultrasound left face. Left facial swelling without sonographic evidence of hematoma or abscess. Hospital Course This is a 76-year-old female with a past medical history of type 2 diabetes, anemia, who presented to the emergency room for evaluation of left facial swelling with pain and redness. According to the patient, she had a recent dental abscess and was on antibiotics with Omnicef as outpatient. However, patient did not feel any improvement in her symptoms got worse and she came up for further evaluation. The patient was arrived, she was found to be in sepsis with a WBC of 20,800, temperature 99.5 with documented left facial cellulitis. Patient had Face which was questionable for hematoma versus abscess on left masseter muscle. ID consult was called. Patient was continued on appropriate IV antibiotic regimen. She did not have any oral drainage. She was able to tolerate diet. There was no airway compromise. Her blood cultures came back negative and urine culture also was negative. Patient was responding very well to the antibiotic regimen. Her facial swelling was resolving. Patient was also noted with uncontrolled diabetes with A1c 11. She also had elevated blood sugar which also got worse while she was receiving steroids to relieve swelling. Therefore, she was also evaluated by endocrinology and was placed on appropriate insulin regimen while patient was receiving Decadron IV therapy. Blood sugar remained stable thereafter. There was a discussion whether to call ENT evaluation or not. Therefore, I spoke with Dr. Lentz, who is also ENT specialist and discussed patient's condition over the phone. A soft tissue ultrasound did not reveal any presence of abscess. Imaging studies findings also reported. According to expert opinion, there is no indication for inpatient ENT evaluation as there is no evidence of abscess or anything to be drained at this time. The recommendation was to continue patient on oral clindamycin and Medrol Dosepak and discharged patient home with outpatient dentist follow-up. This was concurred with ID colleagues as well as endocrinology colleagues. Patient also had diabetic education and she was provided with glucometer upon discharge. She was also given insulin instructions.Patient was also noted with iron deficiency anemia for which she received IV iron followed by oral iron replacement with stable H&H. Patient feels complete relief in her symptoms. There is a mild swelling on her left face without any erythema or pain at this time. She is stable for outpatient ENT/Dental follow-up. Disposition: Patient will be discharged home. She is instructed to follow-up with outpatient dentist and ENT in 1 week. Foremost priority is to have dental evaluation for her tooth abscess. Patient and family verbalized discharge instructions. Patient was provided with prescriptions for newly added medication as well as insulin. Home health for insulin instructions and safety check. Family also educated in insulin administration. Approximately 60 minutes was spent in coordinating the discharge on this patient. Patient was seen in collaboration with . Home Meds Active Scripts Ferrous Sulfate* (Ferrous Sulfate*) 325 Mg Tabec, 325 MG PO BID, #60 TAB Prov:AMADOR,JASON V. ZIPPER CUTTER 12/02/16 Clindamycin Hcl* (Clindamycin Hcl*) 300 Mg Capsule, 300 MG PO Q6 for 7 Days, #7 CAP Prov:AMADOR,JASON V. ZIPPER CUTTER 12/02/16 [Glucometer] No Conflict Check, 1, #1 BOX Blood glucose monitoring 3 times a day. Prov:AMADOR,JASON V. ZIPPER CUTTER 12/02/16 Famotidine* (Pepcid*) 20 Mg Tablet, 20 MG PO BID, #60 TAB Prov:AMADOR,JASON V. ZIPPER CUTTER 12/02/16 Methylprednisolone* (Medrol* DOSE PACK) 4 Mg/Dose-Pack Tab.ds.pk, 4 MG PO . DIRECTED, #1 PACKET Prov:AMADOR,JASON V. ZIPPER CUTTER 12/02/16 Insulin Aspart* (Novolog Insulin Pen*) 100 Unit/Ml Soln, 5 UNIT SC WITH MEALS, # 1 SYR Please provide patient with insulin pen as she cannot draw insulin from syringe and she also cannot read. Prov:JASON AMADOR V. SHELBY 12/02/16 Insulin Glargine* (Lantus*) 100 Unit/Ml Soln, 15 UNIT SC DAILY@08, #1 SYR Okay to substitute based on insurance. However, please provide patient with insulin pen. Provide patient with 30 day supplies of insulin syringes, needles, and lancets for blood glucose monitoring 3 times a day. Prov:JASON AMADOR VDavid RYAN 12/02/16 Reported Medications Sitagliptin Phos-Metformin Hcl (Janumet) 1 Tab Tablet 02/11/10 Follow-up Plan 1.Follow up with primary care physician in 1 week If you don't have one please let someone know, we can give you resources that may help you pick one. You may also call your insurance company to assign one to you. Review your medication list with your nurse before leaving and if you need new prescriptions please let your nurse know. I may have made changes to your home medications or given you new prescriptions, please let your primary doctor know as well. Stay compliant with your medications and report any side effects to your PCP or pharmacist. Return to the ER if you have any concerns and cannot reach your doctors or call your insurance company, they usually have a nurse that can help you. 2. Call 911 or go to the nearest emergency room if experiencing loss of consciousness, dizziness, chest pain, shortness of breath, vomiting/abdominal pain, speech difficulties, motor weakness or any unusual symptoms. Other orders: Follow-up with dentist as soon as possible. Also recommend outpatient ENT Follow-up Primary Care Provider Elana So Pending Labs Laboratory Tests Test 12/02/16 17:24 12/02/16 20:59 12/02/16 23:53 12/03/16 05:38 Bedside Glucose 156mg/dL (70-220) 160mg/dL (70-220) 106mg/dL (70-220) White Blood Count 11.310^3/ul (4.8-10.8) Red Blood Count 3.7610^6/ul (4.20-5.40) Hemoglobin 10.3g/dl (12.0-16.0) Hematocrit 32.4% (37.0-47.0) Mean Corpuscular Volume 86.2fl (82.0-101.0) Mean Corpuscular Hemoglobin 27.4pg (29.0-33.0) Mean Corpuscular Hemoglobin Concent 31.8g/dl (32.0-37.0) Red Cell Distribution Width 13.0% (11.5-14.5) Platelet Count 04148^3/UL (140-415) Mean Platelet Volume 11.4fl (7.4-10.4) Neutrophils % 74.9% (39.0-77.0) Lymphocytes % 14.5% (15.0-51.0) Monocytes % 4.9% (0.0-11.0) Eosinophils % 0.0% (0.0-7.0) Basophils % 0.2% (0.0-2.0) Nucleated Red Blood Cells % 0.2/100WBC (0.0-0.0) Neutrophils # 8.510^3/ul (1.6-7.5) Lymphocytes # 1.610^3/ul (0.8-2.9) Monocytes # 0.610^3/ul (0.3-0.9) Eosinophils # 0.010^3/ul (0.0-0.5) Basophils # 0.010^3/ul (0.0-0.1) Nucleated Red Blood Cells # 0.010^3/ul (0.0-0.0) Sodium Level 144mmol/L (135-144) Potassium Level 4.2mmol/L (3.5-5.1) Chloride Level 109mmol/L (97-110) Carbon Dioxide Level 27mmol/L (21-31) Anion Gap 12 (8-16) Blood Urea Nitrogen 20mg/dl (7-20) Creatinine 0.77mg/dl (0.44-1.00) Glucose Level 154mg/dl (70-220) Calcium Level 8.6mg/dl (8.4-10.2) Test 12/03/16 06:01 12/03/16 08:02 12/03/16 12:04 Bedside Glucose 150mg/dL (70-220) 154mg/dL (70-220) 264mg/dL (70-220) JASON AMADOR NP Dec 03, 2016 13:28
--- NOTE | 2016-12-03 13:47 | CONS ---
Date/Time of Note Date/Time of Note DATE: 12/03/16 TIME: 13:46 Consult Date/Type/Reason Admit Date/Time Nov 29, 2016 at 08:40 Initial Consult Date 11/30/16 Type of Consultation: id Ordering Provider: JASON AMADOR NP Objective Vital Signs Date Time Temp Pulse Resp B/P Pulse Ox O2 Delivery O2 Flow Rate FiO2 12/03/16 07:30 97.3 54 18 144/65 97 Intake and Output 12/02/16 12/02/16 12/03/16 15:00 23:00 07:00 Intake Total 3460 ml 1630 ml Balance 3460 ml 1630 ml Results/Medications Result Diagram: 12/03/16 0538 12/03/16 0538 Results 24 hrs Laboratory Tests Test 12/02/16 17:24 12/02/16 20:59 12/02/16 23:53 12/03/16 05:38 Bedside Glucose 156 160 106 White Blood Count 11.3 H Red Blood Count 3.76 L Hemoglobin 10.3 L Hematocrit 32.4 L Mean Corpuscular Volume 86.2 Mean Corpuscular Hemoglobin 27.4 L Mean Corpuscular Hemoglobin Concent 31.8 L Red Cell Distribution Width 13.0 Platelet Count 327 Mean Platelet Volume 11.4 H Neutrophils % 74.9 Lymphocytes % 14.5 L Monocytes % 4.9 Eosinophils % 0.0 Basophils % 0.2 Nucleated Red Blood Cells % 0.2 H Neutrophils # 8.5 H Lymphocytes # 1.6 Monocytes # 0.6 Eosinophils # 0.0 Basophils # 0.0 Nucleated Red Blood Cells # 0.0 Sodium Level 144 Potassium Level 4.2 Chloride Level 109 Carbon Dioxide Level 27 Anion Gap 12 Blood Urea Nitrogen 20 Creatinine 0.77 Glucose Level 154 Calcium Level 8.6 Test 12/03/16 06:01 12/03/16 08:02 12/03/16 12:04 Bedside Glucose 150 154 264 H Medications Current Medications Diagnostic Test (Pha) (Accu-Chek) 1 ea 02 XX Last administered on 11/30/16t 02 :12; Admin Dose 1 EA; Start 11/30/16 at 02:00 Miscellaneous Information 1 ea NOTE XX ; Start 11/29/16 at 04:30 Glucose (Glutose) 15 gm Q15M PRN PO DECREASED GLUCOSE; Start 11/29/16 at 04:30 Glucose (Glutose) 22.5 gm Q15M PRN PO DECREASED GLUCOSE; Start 11/29/16 at 04: 30 Dextrose (D50w Syringe) 25 ml Q15M PRN IV DECREASED GLUCOSE; Start 11/29/16 at 04:30 Dextrose (D50w Syringe) 50 ml Q15M PRN IV DECREASED GLUCOSE; Start 11/29/16 at 04:30 Glucagon (Glucagen) 1 mg Q15M PRN IM DECREASED GLUCOSE; Start 11/29/16 at 04: 30 Glucose 15 gm 15 gm Q15M PRN BUCCAL DECREASED GLUCOSE; Start 11/29/16 at 04:30 Piperacillin Sod/ Tazobactam Sod (Zosyn 2.25gm/ 50ml (Pmx)) 50 ml @ 200 mls/hr Q6 IVPB Last administered on 12/03/16 12:08; Admin Dose 200 MLS/HR; Start at 06:00 Insulin Glargine 15 unit 15 unit DAILY@08 SC Last administered on 12/03/16 08 :43; Admin Dose 15 UNIT; Start 11/29/16 at 08:00 Sodium Chloride (NS) 1,000 ml @ 80 mls/hr [id number] IV Last administered on 02:05; Admin Dose 80 MLS/HR; Start 11/29/16 at 10:30 Morphine Sulfate (morphine) 2 mg Q4H PRN IV PAIN Last administered on 01:07; Admin Dose 2 MG; Start 11/30/16 at 00:45 Ferrous Sulfate (Ferrous Sulfate (Ec)) 325 mg BID PO Last administered on 12/03 08:13; Admin Dose 325 MG; Start 12/03/16 at 09:00 Docusate Sodium (Colace) 100 mg BID PO Last administered on 12/03/16 08:13; Admin Dose 100 MG; Start 11/30/16 at 21:00 Acetaminophen/ Hydrocodone Bitart ([place] (5/325)) 1 tab Q4H PRN PO PAIN Last administered on 11/30/16 23:31; Admin Dose 1 TAB; Start 11/30/16 at 23:00 Acetaminophen/ Hydrocodone Bitart ([place] (10/325)) 1 tab Q4H PRN PO PAIN Last administered on 12/02/16 15:01; Admin Dose 1 TAB; Start 11/30/16 at 23:00 Polyethylene Glycol 17 gm 17 gm DAILY PO Last administered on 12/03/16 08:13 ; Admin Dose 17 GM; Start 12/02/16 at 09:00 Vancomycin HCl/ Sodium Chloride (Vancocin/NS) 150 ml @ 75 mls/hr Q12H IVPB Last administered on 12/03/16 03:39; Admin Dose 75 MLS/HR; Start 12/02/16 at 16:00 Dexamethasone (Decadron) 4 mg Q6 IV Last administered on 12/03/16 12:08; Admin Dose 4 MG; Start 12/02/16 at 18:00 Insulin Human NPH (Humulin N) 4 unit Q6 SC Last administered on 12/03/16 12: 23; Admin Dose 4 UNIT; Start 12/02/16 at 18:00 Miscellaneous Information (*Rx Drug Level Order Reminder*) VANCOMYCIN TROUGH ON 11/16... ONCE ONCE XX ; Start 12/04/16 at 03:00; Stop 12/04/16 at 03:01 Assessment/Plan Chief Complaint/Hosp Course SUBJECTIVE: Patient is awake, feels better, looks comfortable, no fevers. MICROBIOLOGY: Blood cultures have been negative. DIAGNOSTICS: CT of the face revealed a large left masseter muscle with poorly defined area of low attenuation suggestive of underlying hematoma or abscess. Left parotid gland is also mildly edematous. Chest x-ray on admission revealed no evidence of active cardiopulmonary disease. ANTIMICROBIALS: Vancomycin and Zosyn. ALLERGIES: NONE. PHYSICAL EXAMINATION: GENERAL: Well-developed, elderly woman who is alert, in no distress. HEENT: Head atraumatic, normocephalic. Sclerae anicteric. Buccal mucosa dry. NECK: Supple. CHEST: Rise symmetrical. Breath sounds clear. HEART: S1, S2. ABDOMEN: Soft, bowel sounds present. EXTREMITIES: No cyanosis. SKIN: Facial swelling on the left is much better ASSESSMENT: 1. Left facial cellulitis/questionable parotitis. US revealed no abscess==> improved significantly 2. Poorly controlled diabetes. 3. Sepsis on admission, now with persistent leukocytosis secondary to steroids. PLAN: The patient remains stable. Continue present care, anticipate dc on oral Clindamycin if ok with ENT and f/u with ENT outpatient, no rec-s for surgical procedure per ENT/primary note. [facility] staff Problems: EVE PIZARRO NP Dec 03, 2016 13:47
== END 2016-12-03 14:45 | disposition home or self-care (01) | DRG 872 ==
LOC: FTE 20:06 → UNDOADMIN 11-29 01:14 → MS2 11-29 01:14
PROVIDERS: ADMIT Internal Medicine; ATTEND Internal Medicine
DX: A41.9 Sepsis, unspecified organism (principal); N17.9 Acute kidney failure, unspecified; E11.65 Type 2 diabetes mellitus with hyperglycemia; N39.0 Urinary tract infection, site not specified; L03.211 Cellulitis of face; E86.0 Dehydration; D50.9 Iron deficiency anemia, unspecified; K04.7 Periapical abscess without sinus; Z79.84 Long term (current) use of oral hypoglycemic drugs; E87.6 Hypokalemia; M19.90 Unspecified osteoarthritis, unspecified site; K11.21 Acute sialoadenitis
CPT/HCPCS: 70486; 71010; 76536; 80048; 80053; 80061; 80202; 81001; 82947; 82962; 83036; 83540; 83605; 83735; 84439; 84443; 84481; 84484; 85025; 85610; 85730; 87040; 87086; 92526; 92610; 93005; 93306; 96374; 96375; J1940; J1100; J1815; J2270; J2543; J2916; J2920; J2930; J3370; J3475; J7030; J7042; J7120; Q9967